=== PATIENT | female | born 1975 | race Caucasian/White ===

== ENCOUNTER 2022-08-31 09:47 | Outpatient (REF) | payer BC, SELFPAY ==
--- NOTE | 2022-08-31 09:20 | PAPFT_PTH ---
PATIENT: Chioma Carias LOC: [facility] U#:[id number] AGE/SX: 46/F ROOM: RE08/31/[address]: Katlyn Ardon MD : [id number] BED: DIS: 08/31/2022 SPEC #: [id number] RECD: 08/31/22 12:53 STATUS: SURESH REAnna #: [id number] HUMBERTO: 08/31/22 09:[address]: Katlyn Ardon DEPT: [facility] Cytology RECD BY: Dian Sainz ENTERED: 08/31/22 12:54 SP TYPE: PAPFT OTHR DR: Caitie Steele DO Tissues: 1 - CX/ENDOCX FOR PAP SMEARS Procedures: PAP THIN PREP/[facility] Screening HPV DNA PROBE Comments: [id number]
== END 2022-08-31 09:48 | disposition home or self-care (01) ==
LOC: LBN 09:47
PROVIDERS: PCP Obstetrics & Gynecology; Visit Provider Obstetrics & Gynecology
DX: Z12.4 Encounter for screening for malignant neoplasm of cervix (principal); Z11.51 Encounter for screening for human papillomavirus (HPV)
CPT/HCPCS: 88142; 87624

== ENCOUNTER 2022-09-14 00:38 | Outpatient (CLI) | payer BC, SELFPAY ==
--- NOTE | 2022-09-14 07:55 | DI.MAMMO_ITS ---
Exam(s) MAMMO SCREENING EXAM: MG MAMMO SCREENING CLINICAL HISTORY: screening TECHNIQUE: Mammograms were interpreted according to the usual protocol including computer analysis w [employer] CAD system, tomosynthesis and C-view imaging. COMPARISON: [facility] MAMMO VAN DIAGNOSTIC BILAT-M2 from 02/26/2021, [facility] FINDINGS: The breasts are composed of scattered fibroglandular densities, Breast Density category B. No suspicious masses or suspicious microcalcifications are seen. No skin thickening or abnormal axillary lymph nodes are seen. There has been no significant change from prior exams. IMPRESSION: BI-RADS Category 1, Negative mammogram Yearly screening mammography is recommended. Breast Density - Category B, scattered fibroglandular densities. A negative radiographic report should not delay biopsy if a dominant or clinically suspicious mass is present. Up to ten percent of cancers are not identified on mammography. A negative report may reinforce clinical impression. Adenosis and dense breasts may obscure an underlying neoplasm. False positive reports average 6 to 10%. Patient will receive a letter notifying them of these results.
== END 2022-09-14 00:58 ==
PROVIDERS: PCP Obstetrics & Gynecology; Visit Provider Obstetrics & Gynecology
DX: Z12.31 Encounter for screening mammogram for malignant neoplasm of breast (principal)
CPT/HCPCS: 77063; 77067

== ENCOUNTER 2023-02-15 13:18 | Outpatient (REF) | payer BC, SELFPAY | END 2023-02-15 13:19 | disposition home or self-care (01) | LOC: LBN 13:18 | PROVIDERS: PCP Obstetrics & Gynecology; Visit Provider Obstetrics & Gynecology | DX: R30.0 Dysuria (principal) | CPT/HCPCS: 87086 ==

== ENCOUNTER 2023-11-21 18:29 | Outpatient (REF) | payer BC, SELFPAY ==
--- OUTSIDE RECORDS SUMMARY | 2023-11-21 18:32 | XMS_ITS | Continuity of Care Document ---
Author Organization [facility] Address [address] [place] [address] Care Team Providers Care [place] Auditor Name Role Phone Alexander Reina Primary Care Physician [phone] Encounter [facility] Date(s): 11/13/23 - 11/13/[address] [address] Discharge Disposition: Home or Self Care Attending Physician: Alexander Reina MD Admitting Physician: Alexander Reina MD Referring Physician: Alexander Reina MD Allergies, Adverse Reactions, Alerts Substance Reaction Severity Status codeine Nausea Unknown Active Immunizations Given and Recorded Vaccine Date Status Refusal Reason SARS-CoV-2 (COVID-19) mRNA-1273 vaccine 09/19/20 R ecorded SARS-CoV-2 (COVID-19) mRNA-1273 vaccine 08/22/20 R ecorded influenza virus vaccine, inactivated 03/29/12 Keith rded influenza virus vaccine, inactivated 02/11/11 Keith rded influenza virus vaccine, inactivated 05/28/10 Keith rded tetanus/diphth/pertuss (Tdap) adult/adol 04/21/10 Recorded Medications HYDROcodone-acetaminophen 5 mg-325 mg oral tablet 1 tab, Oral, every 6 hr, PRN as needed for pain, # 12 tab, 0 Refill(s), Pharmacy: [facility] #[id number], 160, cm, 01/09/22 12:08:00 EDT, Height/Length Dosing, 65, kg, 01/09/22 12:08:00 EDT, Weight Dosing Start Date: 01/09/22 Status: Ordered Results Laboratory List Name Date Thyroid Stimulating Hormone 11/13/23 Most recent to oldest [Reference Range]: 1 TSH [0.358-3.740 mcIntlUnit/mL] 3.162 mc IntlUnit/mL (11/13/23 7:54 AM) Social History Social History Type Response Tobacco Never tobacco user T obacco Use:. Sex Female Patient Care team information Care Team Personnel Name: Alexander Reina MD Position: No Access Member Role: Informed Provider Address: Address: [address] [address] [place] Care Team Related Persons Name: AL MATHEW Address: Home [address] [facility] [phone]
--- OUTSIDE RECORDS SUMMARY | 2023-11-21 18:32 | XMS_ITS | Continuity of Care Document ---
Author Organization [facility] Address [address] [place] [address] Care Team Providers Care Cable Reeler Name Role Phone Alexander Reina Bhavna Primary Care Physician [phone] Encounter [facility] Date(s): 10/31/22 - 10/31/[address] [address] Discharge Disposition: Home or Self Care Attending Physician: Amira Mayes ND Admitting Physician: Amira Mayes ND Referring Physician: Amira Mayes ND Allergies, Adverse Reactions, Alerts Substance Reaction Severity Status codeine Nausea Unknown Active Assessment and Plan Diagnostic Tests Pending * Copper, S [place] 10/31/22 * Homocysteine, Total, P [place] 10/31/22 Immunizations Given and Recorded Vaccine Date Status [...] pain, # 12 tab, 0 Refill(s), Pharmacy: [facility] #[id number], 160, cm, 01/09/22 12:08:00 EDT, Height/Length Dosing, 65, kg, 01/09/22 12:08:00 EDT, Weight Dosing Start Date: 01/09/22 Status: Ordered Results Laboratory List Name Date Automated Diff 10/31/22 CBC w/ Diff 10/31/22 Comprehensive Metabolic Panel 10/31/22 Ferritin 10/31/22 Folate Level 10/31/22 Free T4 10/31/22 Hemoglobin A1c 10/31/22 Iron Level and TIBC 10/31/22 T3, Free [facility] 10/31/22 Thyroid Stimulating Hormone 10/31/22 Vitamin B12 Level 10/31/22 Most recent to oldest [Reference Range]: 1 WBC [5.0-10.0 x10^3/mcL] 4.7 x10^3/mcL *LOW* (10/31/22 8:03 AM) RBC [4.1-5.3 x10^6/mcL] 4.6 x10^6/mcL (10/31/22 8:03 AM) Neutro Auto [40.0-75.0 %] 57.9 % (10/31/22 8:03 AM) Lymph Auto [20.0-50.0 %] 29.4 % (10/31/22 8:03 AM) Sabine Auto [2.0-15.0 %] 7.0 % (10/31/22 8:03 AM) Basophil Auto [0.0-1.0 %] 0.6 % (10/31/22 8:03 AM) BUN [7-18 mg/dL] 16 mg/dL (10/31/22 8:03 AM) Glucose Level [74-106 mg/dL] 101 mg/dL (10/31/22 8:03 AM) Potassium Level [3.5-5.1 mmol/L] 4.0 mmo l/L (10/31/22 8:03 AM) MCV [80.0-96.0 fL] 91.0 fL (10/31/22 8:03 AM) T4 Free [0.76-1.46 ng/dL] 0.57 ng/dL *LOW* (10/31/22 8:03 AM) AST [15-37 unit/L] 16 unit/L (10/31/22 8:03 AM) ALT [14-59 unit/L] 34 unit/L (10/31/22 8:03 AM) MCHC [31.0-35.0 g/dL] 34.0 g/dL (10/31/22 8:03 AM) Sodium Level [136-145 mmol/L] 137 mmol/L (10/31/22 8:03 AM) Folate Level [8.6-58.9 ng/mL] 19.7 ng/mL (10/31/22 8:03 AM) Hct [37.0-47.0 %] 41.5 % (10/31/22 8:03 AM) Calcium Level [8.5-10.1 mg/dL] 8.2 mg/dL *LOW* (10/31/22 8:03 AM) Albumin Level [3.4-5.0 g/dL] 4.0 g/dL (10/31/22 8:03 AM) Protein Total [6.4-8.2 g/dL] 7.2 g/dL (10/31/22 8:03 AM) Iron Sat [20-55 %] 25 % (10/31/22 8:03 AM) MCH [26.0-32.0 pg] 30.9 pg (10/31/22 8:03 AM) Neutro Absolute 2.7 x10^3/mcL *NA* (10/31/22 8:03 AM) Bilirubin Total [0.2-1.0 mg/dL] 0.6 mg/d L (10/31/22 8:03 AM) Hgb [12.0-16.0 g/dL] 14.1 g/dL (10/31/22 8:03 AM) B12 Level [193-986 pg/mL] 1073 pg/mL *HI* (10/31/22 8:03 AM) Alk Phos [46-146 unit/L] 54 unit/L (10/31/22 8:03 AM) Ferritin Level [8-252 ng/mL] 95 ng/mL (10/31/22 8:03 AM) Platelets [130-450 x10^3/mcL] 251 x10^3/ mcL (10/31/22 8:03 AM) CO2 [21-32 mmol/L] 24 mmol/L (10/31/22 8:03 AM) TIBC [250-450 mcg/dL] 362 mcg/dL (10/31/22 8:03 AM) TSH [0.358-3.740 mcIntlUnit/mL] 10.075 m cIntlUnit/mL *HI* (10/31/22 8:03 AM) Iron [50-170 mcg/dL] 89 mcg/dL (10/31/22 8:03 AM) eGFR Non-AA [>=60] 102 (10/31/22 8:03 AM) eGFR AA [>=60] 102 (10/31/22 8:03 AM) Hemoglobin A1c [4.0-6.0 %] 5.3 % (10/31/22 8:03 AM) Chloride Level [98-107 mmol/L] 104 mmol/ L (10/31/22 8:03 AM) RDW-CV [11.5-14.5 %] 12.2 % (10/31/22 8:03 AM) Imm Gran Auto [0.0-0.9 %] 0.2 % (10/31/22 8:03 AM) Creatinine Level [0.55-1.02 mg/dL] 0.74 mg/dL (10/31/22 8:03 AM) T3, Free [facility] [2.8-5.3 pg/mL] 3.5 pg/mL 2 *NA* (10/31/22 8:03 AM) Eos, Auto [1.0-6.0 %] 4.9 % (10/31/22 8:03 AM) 2Result Comment: Test performed or referred by The [address] [id number] Social History Social History Type Response Tobacco Never tobacco user T obacco Use:. Sex Female Patient Care team information Care Team Personnel Name: Alexander Reina MD Position: No Access Member Role: Informed Provider Address: Address: [facility] [address] [place] [address] [place] Care Team Related Persons Name: AL MATHEW Address: Home [address] [place], [phone]
--- OUTSIDE RECORDS SUMMARY | 2023-11-21 18:32 | XMS_ITS | Continuity of Care Document ---
Author Organization [facility] Address [address] [place] [address] Care Team Providers Care Assessment Manager Name Role Phone Alexander Reina Primary Care Physician [phone] Encounter [facility] Date(s): 07/01/23 - 07/02/[address] [address] Discharge Disposition: Home or Self Care Attending Physician: Fidencio Poole MD Admitting Physician: Fidencio Poole MD Allergies, Adverse Reactions, Alerts Substance Reaction Severity Status codeine Nausea Unknown Active Assessment and Plan Extracted from: Title:Clinical Document Author:Jeannette Hamilton te:07/02/23 Diagnosis: Headache Comment: Immunizations Given and Recorded Vaccine Date Status [...] pain, # 12 tab, 0 Refill(s), Pharmacy: [id number], 160, cm, 01/09/22 12:08:00 EDT, Height/Length Dosing, 65, kg, 01/09/22 12:08:00 EDT, Weight Dosing Start Date: 01/09/22 Status: Ordered Mental Status 3/2/24 Eye Opening Response [place] Spontaneous ly Best Verbal Response Romina Oriented Best Motor Response Romina Obeys comman ds [place] Coma Score 15 Results Laboratory List Name Date Basic Metabolic Panel (BMP) 07/01/23 Beta hCG Quantitative 07/01/23 CBC w/ Diff 07/01/23 Automated Diff 07/01/23 Most recent to oldest [Reference Range]: 1 WBC [5.0-10.0 x10^3/mcL] 6.4 x10^3/mcL (07/01/23 10:42 PM) RBC [4.1-5.3 x10^6/mcL] 3.8 x10^6/mcL *LOW* (07/01/23 10:42 PM) Neutro Auto [40.0-75.0 %] 64.3 % (07/01/23 10:42 PM) Lymph Auto [20.0-50.0 %] 21.5 % (07/01/23 10:42 PM) [place] Auto [2.0-15.0 %] 10.1 % (07/01/23 10:42 PM) Basophil Auto [0.0-1.0 %] 0.3 % (07/01/23 10:42 PM) BUN [7-18 mg/dL] 19 mg/dL *HI* (07/01/23 10:42 PM) Glucose Level [74-106 mg/dL] 96 mg/dL (07/01/23 10:42 PM) Potassium Level [3.5-5.1 mmol/L] 3.8 mmo l/L (07/01/23 10:42 PM) MCV [80.0-96.0 fL] 91.9 fL (07/01/23 10:42 PM) MCHC [31.0-35.0 g/dL] 34.6 g/dL (07/01/23 10:42 PM) Sodium Level [136-145 mmol/L] 140 mmol/L (07/01/23 10:42 PM) Hct [37.0-47.0 %] 35.0 % *LOW* (07/01/23 10:42 PM) Calcium Level [8.5-10.1 mg/dL] 7.9 mg/dL *LOW* (07/01/23 10:42 PM) MCH [26.0-32.0 pg] 31.8 pg (07/01/23 10:42 PM) Neutro Absolute 4.1 x10^3/mcL *NA* (07/01/23 10:42 PM) Hgb [12.0-16.0 g/dL] 12.1 g/dL (07/01/23 10:42 PM) Platelets [130-450 x10^3/mcL] 202 x10^3/ mcL (07/01/23 10:42 PM) CO2 [21-32 mmol/L] 24 mmol/L (07/01/23 10:42 PM) eGFR Non-AA [>=60] 105 (07/01/23 10:42 PM) eGFR AA [>=60] 105 (07/01/23 10:42 PM) Chloride Level [98-107 mmol/L] 107 mmol/ L (07/01/23 10:42 PM) RDW-CV [11.5-14.5 %] 12.3 % (07/01/23 10:42 PM) Imm Gran Auto [0.0-0.9 %] 0.2 % (07/01/23 10:42 PM) Creatinine Level [0.55-1.02 mg/dL] 0.72 mg/dL (07/01/23 10:42 PM) Eos, Auto [1.0-6.0 %] 3.6 % (07/01/23 10:42 PM) Beta hCG Qnt [1-6 mIntlUnit/mL] <1 mIntl Unit/mL *LOW* (07/01/23 10:42 PM) Vital Signs Most recent to oldest [Reference Range]: 1 Temperature Temporal Artery [36-38 Deg C ] 37.5 Deg C (07/01/23 10:11 PM) Heart Rate Monitored [60-100 bpm] 87 bpm (07/01/23 10:11 PM) Respiratory Rate [12-24 br/min] 18 br/mi n (07/01/23 10:11 PM) Blood Pressure [90-140/60-90 mmHg] 129/7 2mmHg (07/01/23 10:11 PM) Mean Arterial Pressure, Cuff [65-140 mmH g] 91 mmHg (07/01/23 10:11 PM) Social History Social History Type Response Tobacco Never tobacco user T obacco Use:. Sex Female Physician Emergency department Note * Fidencio Poole MD: PERFORM Event Display: ED Note Physician Authored Date: [id number] JOSE ANTONIO MATHEW :1975 Age:47 years Sex:Female Visit Date:07/01/2023 Primary Care Physician: Alexander Reina MD HPI 47-year-old female with a history of infrequent prior headaches presents for evaluation of a headache that has been persistent for approximately 6 days and generally refractory to OTC medications (NyQuil, ibuprofen). Patient notes that she had relatively rapid onset of her headache 6 days ago. Patient has taken NyQuil and ibuprofen shortly prior to arrival. * Denies changes in vision or hearing, fevers, neck stiffness, rashes, neck pain, temporal pain, jaw pain with chewing, dental pain, minor neck trauma, recent chiropractic manipulation, or head trauma. Patient notes chiropractic manipulation of her neck several months ago. * Denies anticoagulation or hypercoaguable history. Patient has a sister with a history of factor Vand factor IX deficiency who has a history of [employer] thrombosis, patient without any known hypercoagulable history.?? * No family members with similar symptoms. CO detectors in house. Unable to identify any higher risk exposures to possible carbon monoxide. ?? M/S/F/SocHx notable for: please see HPI; remainder reviewed with patient and in chart.? ROS: Negative constitutional, eye, cardiovascular, pulmonary, GI, , MSK, skin, neurologic, psychiatric, endocrine unless noted in the HPI. ?? Exam HR 87, BP 129/72, RR 18, T 37.5??C, SaO2??96% on room air. Gen: Pleasant, non-toxic appearing, resting in mild discomfort. HEENT: NC, AT. Dentition intact without visible caries. No frontal or maxillary sinus TTP. Temples without TTP bilaterally, equal 2+ temporal artery pulses. No paraspinal posterior neck pain. Resp: clear to auscultation bilaterally. Card: RRR GI: NT/ND : Deferred MSK: No visible deformities, strength and tone WNL. Skin: Normal color with no visible lesions.?? Neuro:??alert and oriented?3, no facial asymmetry, no gaze preference, no slurring of speech. CN II-III: pupils equal and reactive (4->2mm bilaterally); III, IV, : EOMI, V1-V3: sensation totouch bilaterally intact; VII: no facial asymmetry (frown / smile); VIII: no nystagmus; X: phonation intact, uvula midline; XI: trapezius 5/5 bilaterally, XII: tongue midline. Psych: Mildly anxious mood and affect, somewhat hyperbolic in providing history, otherwise appropriate. ?? Labs WBC 6.4, Hb 12.1, Na 140, K 3.8, beta-hCG <1. ?? Imaging CTA head:??No intracranial large vessel high-grade stenosis or occlusion.? CTA??neck: Patent vertebral and carotid arteries. No stenosis of the internal carotid arteries bilaterally by NASCET criteria. ?? MDM Previous chart, nursing note, and vitals reviewed.?? A:??47-year-old female with a history of infrequent prior headaches presents for evaluation of a headache that has been persistent for approximately 6 days and generally refractory to OTC medications(NyQuil, ibuprofen). ?? DDx: migraine / tension headache, cluster headache, sentinel bleed/SAH, infection (LI[employer] vs [place] secondary to non-LIQU[employer] OPERATOR focal infection), tumor/mass effect, hypertensive encephalopathy, glaucoma or iritis,idiopathic intracranial hypertension, cavernous sinus thrombosis, temporal arteritis. ?? Evaluation:?*??Migraine??/ tension headache -tentatively suspect a migraine type headache as the patient has a history of headaches and the remainder of the patient's differential has been relatively excluded. ??* Cluster - doubt cluster headache given the absence of unilateral symptoms, eye watering, swelling, or nasal congestion. ??* [place] bleed/SAH - no evidence of aneurysm or intracranial hemorrhage by imaging. Patient without meningismus, consider sentinel bleed/SAH to be effectively ruled out/appropriately risk stratified. ??* Infection - Given lack of rash, meningismus, or fever; doubt meningitis. Similarly the history and exam are without evidence of acute otitis media, sinusitis, dental abscesses or clinically significant dental caries. ??* Mass - no evidence by imaging. * Hypertensive encephalopathy - BP within the brain's autoregulatory zone. * Glaucoma or iritis - As the patient is without reported vision changes, eye pain, and an occular exam without increases in pain on pupillary constriction further evaluation was not pursued. * Idiopathic Intracranial Hypertension - unlikely given the lack of visual symptoms, short durationof symptoms, lack of worsening with valsalva, or more prominent morning symptoms. * Thrombosis - given the lack of identifiable risk factors (preceding facial infection, fever, and hypercoagulability) as well as an absence of deficits on exam doubt both cavernous and venous sinus thrombosis. Additionally, no concerning features noted on imaging. While the patient's sister has a history of hypercoagulability, the patient has no known hypercoagulable history nor identifiable risk factors with respect to today's presentation. Given the patient's improvement with symptomatic treatment as below, further emergent evaluation is not felt to be indicated. * Temporal Arteritis - given lack of temporally localized headache, temporal tenderness or decreased temporal artery pulse, absent history of jaw claudication or vision changes; doubt. ?? ED Course:?1 L NS, 2 mg haloperidol, 12.5 mg diphenhydramine, 10 mg dexamethasone, and 1 g magnesium??given for symptomatic treatment.?12:37 AM??-??patient with significant improvement of headache. Resting comfortably. ?? Disposition: Patient discharged with PCP follow-up recommended. ?? Impression: Headache. Electronically Signed on 07/02/23 01:03 AM Fidencio Poole MD Emergency department Discharge instructions * Fidencio Poole MD: PERFORM Event Display: ED Discharge Information Authored Date: [id number] JOSE ANTONIO MATHEW :1975 Age:47 years Sex:Female Visit Date:07/01/2023 Primary Care Physician: Alexander Reina MD Discharge Instructions We would like to thank you for allowing us to assist you with your healthcare needs. The following includes patient education materials and information regarding your injury/illness. ?? You were seen at [facility] for evaluation for evaluation of??a headache.??Please read and follow all of the instructions below. ?? Please follow up with your primary care physician??in the next 7-10 days for repeat evaluation of your headaches. When calling for follow-up care, please make the office aware that this follow-up is from your recent emergency room visit.? Your care today was limited to identifying and treating emergent medical problems only. Many peoplehave subtle differences in their test results that require follow up with their outpatient physician(s) to correctly determine if this represents a normal variation or concerning abnormality with respect to your specific health.??The care given to you today was limited to identifying and treating emergent medical problems - you need to request a copy of all of your medical records from today's visit and follow up with your outpatient physician(s) to review both today's visit and your overall health. If you have any new symptoms or if you are at all concerned about your health please return immediately to the emergency department. ?? Prescriptions: If you are uninsured or have financial difficulties with filling your prescription(s), you may consider using a free pharmacy discount service such as [employer] ([place]) or [employer] ([place]). These services allow you to search for a medication on your phone (or computer) and obtain a coupon that usually has a significant discount from the list wheat at a pharmacy. Your physician does not have a financial relationship with either of these services. You may also wish to speak with your physician to determine if lower cost prescriptions are possible. ?? Headache You were seen in the emergency department for evaluation and treatment of a headache. There are many causes for headaches. Most are painful but do not threaten your health. However there are some types of headaches that can be life threatening. Please return to the emergency department if you develop any of the following: * Your headache worsens, becomes severe, or you have nausea or vomiting. * Fever greater than 100.5 degrees Fahrenheit. * You have neck stiffness. * Changes in vision or hearing. * You have new weakness, numbness, or decreased sensation. * You have dizziness or difficulty walking * You feel faint or like you will pass out. ?? Please follow up with your primary care doctor if your symptoms continue or do not improve. ?? If you have recurrent headaches, your primary care physician may be able to prescribe medications that abort headaches or refer you to a neurologist for further evaluation and work up of your headaches.? Home care instructions:?? * Keep all follow-up appointments with your caregiver or any specialist referral.?? * Lie down in a dark, quiet room when you have a headache.? Keep a headache journal to find out what may trigger your migraine headaches. For example, write down:?? * What you eat and drink.?? * How much sleep you get.?? * Any change to your diet or medicines.?? * Try massage or other relaxation techniques.?? * Put ice packs or heat on the head and neck. Use these 3 to 4 times per day for 15 to 20 minutes each time, or as needed.?? * Limit stress.?? * Sit up straight, and do not tense your muscles.?? * Quit smoking if you smoke.?? * Limit alcohol use.?? * Decrease the amount of caffeine you drink, or stop drinking caffeine.?? * Eat and sleep on a regular schedule.?? * Get 7 to 9 hours of sleep, or as recommended by your caregiver.?? * Keep lights dim if bright lights bother you and make your headaches worse.? You make take over the counter Acetaminophen (Tylenol) and Ibuprofen (Motrin or Aleve) as directed below for relief of pain.?? *??Take 600 mg of ibuprofen (three 200 mg tablets) with a glass of water every 6-8 hours as needed for pain or fever. Do not take if , allergic to ibuprofen, or if you have severe kidney disease. * Take 1,000 mg of acetaminophen (two 500 mg tablets) with a glass of water every 6-8 hours as needed for pain. Do not take up allergic to acetaminophen. If you have liver disease do not take more than 2000 mg in 24 hours. * You can take these medications at the same time or on separate schedules.?? * Do not take for more than 10 days. * Do not take with alcohol or other acetaminophen containing medications.?? * This medication may cause a mildly upset stomach, if so take it with a small snack. Stop taking it if you have persistent abdominal pain, heartburn, or any stomach pain. Do not take this medicationif you have known ulcers.?? * Please read the warnings at the end of this document regarding these medications.? IBUPROFEN WARNING: This drug may infrequently cause serious (rarely fatal) bleeding from the stomach or intestines. Also, related drugs rarely have caused blood clots to form, resulting in heart attacks and strokes. This medication might also rarely cause similar problems. Talk to your doctor or pharmacist about the benefits and risks of treatment, as well as other possible medication choices. Ifyou notice any of the following rare but very serious side effects, stop taking ibuprofen and seek immediate medical attention: black stools, persistent stomach/abdominal pain, vomit that looks like coffee grounds, chest pain, weakness on one side of the body, sudden vision changes, slurred speech.? IBUPROFEN SIDE EFFECTS: Upset stomach, nausea, vomiting, heartburn, headache, diarrhea, constipation, drowsiness, and dizziness may occur. If any of these effects persist or worsen, notify your doctor or pharmacist promptly. If your doctor has directed you to use this medication, remember that he or she has judged that the benefit to you is greater than the risk of side effects. Many people usingthis medication do not have serious side effects. Tell your doctor immediately if any of these serious side effects occur: stomach pain, swelling of the hands or feet, sudden or unexplained weight gain, ringing in the ears (tinnitus). Tell your doctor immediately if any of these unlikely but serious side effects occur: vision changes, rapid or pounding heartbeat, easy bruising or bleeding, difficult/painful swallowing. Tell your doctor immediately if any of these highly unlikely but very serious side effects occur: change in amount of urine, severe headache, very stiff neck, mental/mood changes, persistent sore throat or fever. This drug may rarely cause serious (possibly fatal) liver disease. If you notice any of the following highly unlikely but very serious side effects, stop taking ibuprofen and consult your doctor or pharmacist immediately: yellowing eyes and skin, dark urine, unusual/extreme tiredness. An allergic reaction to this drug is unlikely, but seek immediate medical attention if it occurs. Symptoms of an allergic reaction include: rash, itching/swelling (especially ofthe face/tongue/throat), severe dizziness, trouble breathing. This is not a complete list of possible side effects.? ACETAMINOPHEN SIDE EFFECTS: This drug usually has no side effects. If you do not have liver problems, the maximum dose of acetaminophen for adults is 4 grams per day (4000 milligrams). Taking more than the maximum daily amount may cause serious (possibly fatal) liver damage. Get medical help right away if you have any of the following symptoms of liver damage: persistent nausea/vomiting, extreme tiredness, stomach/abdominal pain, yellowing eyes/skin, dark urine. If you have liver problems, consult your doctor or pharmacist for a safe dosage of this medication. A very serious allergic reactionto this drug is rare. However, get medical help right away if you notice any symptoms of a serious allergic reaction, including: rash, itching/swelling (especially of the face/tongue/throat), severe dizziness, trouble breathing. This is not a complete list of possible side effects. If you notice other effects not listed above, contact your doctor or pharmacist. ?? DRUG INTERACTIONS: Your healthcare professionals (e.g., doctor or pharmacist) may already be aware of any possible drug interactions and may be monitoring you for it. Do not start, stop or change thedosage of any medicine before checking with them first. This drug should not be used with the following medications because very serious interactions may occur: cidofovir, ketorolac. If you are currently using any of these medications listed above, tell your doctor or pharmacist before starting ibuprofen. Before using this medication, tell your doctor or pharmacist of all prescription and nonprescription/herbal products you may use, especially of: anti-platelet drugs (e.g., cilostazol, clopidogrel), oral bisphosphonates (e.g., alendronate), other medications for arthritis (e.g., aspirin, methotrexate), blood thinners (e.g., enoxaparin, heparin, warfarin), corticosteroids (e.g., prednisone), cyclosporine, desmopressin, high blood pressure drugs (including CELE inhibitors such as captopril, angiotensin II receptor antagonists such as losartan, and beta-blockers such as metoprolol), lithium, pemetrexed, water pills (diuretics such as furosemide, hydrochlorothiazide, triamterene). Check all prescription and nonprescription medicine labels carefully for other pain/fever drugs (NSAIDs such as aspirin, celecoxib, naproxen). These drugs are similar to ibuprofen, so taking one of these drugs while also taking ibuprofen may increase your risk of side effects. Consult your doctor or pharmacist for more details. However, if your doctor has prescribed low doses of aspirin to prevent heart attack or stroke (usually at dosages of 81-325 milligrams a day), you should continue to take theaspirin. Daily use of ibuprofen may decrease aspirin's ability to prevent heart attack/stroke. Talkto your doctor about using a different medication (e.g., acetaminophen) to treat pain/fever. If youmust take ibuprofen, talk to your doctor about possibly taking immediate-release aspirin (not enteric-coated) while also taking the ibuprofen dose apart from your aspirin dose. Do not increase your daily dose of aspirin or change the way you take aspirin/other medications without your doctor's approval. This document does not contain all possible interactions. Therefore, before using this product, tell your doctor or pharmacist of all the products you use. Keep a list of all your medications with you, and share the list with your doctor and pharmacist. ?? Discharge Vitals Temperature??(Temporal Artery) 99.5 ??F (37.5 ??C) Heart Rate??(Monitored) 87 Respiratory Rate?? 18 Blood Pressure?? 129/72?? SpO2?? 96% Allergies codeine??(Nausea) You were treated today on an emergency basis; it may be swift to contact your primary care provider to notify them of your visit today. You may have been referred to your regular doctor or a specialist, please follow up as instructed. If your condition worsens or you can't get in to see the doctor, contact the Emergency Department. Medications What How Much When Instructions Next Dose Unchanged HYDROcodone-acetaminophen (HYDROcodone-acetaminophen 5 mg-325 mg oral tablet) 1 tab Oral (given by mouth) Every 6 hours as needed for as needed for pain Tests Performed Medications and Immunizations Administered Given dexamethasone, 10 mg, IV Push diphenhydrAMINE 50 mg/mL injectable solution, 12.5 mg, IV Push haloperidol 5 mg/mL injectable solution, 2 mg, Slow IV Push magnesium sulfate, 1 g, IV Piggyback Lab Test Name Test Result Date/Time WBC 6.4 x10^3/mcL 07/01/2023 22:42 EST RBC 3.8 x10^6/mcL 07/01/2023 22:42 EST Hgb 12.1 g/dL 07/01/2023 22:42 EST Hct 35.0 % 07/01/2023 22:42 EST MCV 91.9 fL 07/01/2023 22:42 EST MCH 31.8 pg 07/01/2023 22:42 EST MCHC 34.6 g/dL 07/01/2023 22:42 EST RDW-CV 12.3 % 07/01/2023 22:42 EST Platelets 202 x10^3/mcL 07/01/2023 22:42 EST Neutro Auto 64.3 % 07/01/2023 22:42 EST Lymph Auto 21.5 % 07/01/2023 22:42 EST [place] Auto 10.1 % 07/01/2023 22:42 EST Eos, Auto 3.6 % 07/01/2023 22:42 EST Basophil Auto 0.3 % 07/01/2023 22:42 EST Imm Gran Auto 0.2 % 07/01/2023 22:42 EST Neutro Absolute 4.1 x10^3/mcL 07/01/2023 22:42 EST Sodium Level 140 mmol/L 07/01/2023 22:42 EST Potassium Level 3.8 mmol/L 07/01/2023 22:42 EST Chloride Level 107 mmol/L 07/01/2023 22:42 EST CO2 24 mmol/L 07/01/2023 22:42 EST BUN 19 mg/dL 07/01/2023 22:42 EST Glucose Level 96 mg/dL 07/01/2023 22:42 EST Creatinine Level 0.72 mg/dL 07/01/2023 22:42 EST eGFR AA 105 07/01/2023 22:42 EST eGFR Non-AA 105 07/01/2023 22:42 EST Calcium Level 7.9 mg/dL 07/01/2023 22:42 EST Beta hCG Qnt <1 mIntlUnit/mL 07/01/2023 22:42 EST Patient/Technical Writer Signature Patient Name:JOSE ANTONIO MATHEW I have received this information and my questions have been answered. Patient/Technical Writer Name: Patient/Technical Writer Signature: Relationship to Patient: Witness Name/Signature: Date: Electronically Signed on: 07/02/2023 01:03 ESTSigned by:FUAD Discharge summary * Jeannette Hamilton: PERFORM Event Display: Discharge Note Authored Date: * Jeannette Hamilton: PERFORM Event Display: Discharge Note Authored Date: Diagnosis: Headache Comment: Electronically Signed on 07/02/23 06:19 AM Jeannette Hamilton Patient Care team information Care Team Personnel Name: Alexander Reina MD Position: No Access Member Role: Informed Provider Address: Address: [address] [address] [place] Care Team Related Persons Name: AL MATHEW Address: [address] [id number]
--- OUTSIDE RECORDS SUMMARY | 2023-11-21 18:33 | XMS_ITS ---
Author Organization Unknown Address [address] [place] [phone] Phone Care Team Providers Care Black Belt Name Role Phone BETO Geiger Attending Unavailable Results XR FINGER(S) RT 3V* - Comple john: 05/19/2021 14:14 LOINC: RIGHT THUMB, 4 VIEWS: There is no evidence of fracture nor widening at the metacarpophalangeal joint. Articulation between the thumb and the carpal and the trapezium appears normal. There is a 1 mm calcific density seen adjacent to the lateral aspect of the interphalangeal joint of the thumb. No degenerative change is evident at this level. No erosions. Other visualized metacarpals appear intact. Dictated by: DIEGO OLGUIN MD Transcribed by: ANTIONETTE 05/19/21/15:58 [id number] Electronically Reviewed and Signed By: GREG OLGUIN MD 05/19/21 16:58 Copy for: 185 HEALTH INFORMATION MGMT Social History Type Status Start Date End Date Code Code Syst em Smoking History Current every day smoker 782844648 SNOMED CT Sex Female Hospital Discharge Instructions Should you have any questions prior to discharge, please contact a member of your healthcare team. If you have left the hospital and have any questions, please contact your primary care physician. Reason For Referral No Data Found Allergies and Adverse Reactions Allergy Substance Reaction Severity Start Date Concern Status Co de Code System No Known Drug Allergies Active 707220538 SNOMED-CT Plan of Treatment US PELVIC / TV 07/05/2023 PRE-OP COVID-19 TESTING 10/01/2021 NM HEPATOBILIARY CCK 09/15/2021 Encounters Encounter Diagnosis Start Date Code Code Sys tem 05/19/2021 [id number] SNOMED-CT Personal Care Team Section Performer Name Performer Role Active Date Inactive Da te
--- OUTSIDE RECORDS SUMMARY | 2023-11-21 18:33 | XMS_ITS | Continuity of Care Document ---
Author Organization [facility] Address [address] [place] [address] Care Team Providers Care Groover And Turner Name Role Phone NunoAlexander Primary Care Physician [phone] Encounter [facility] Date(s): 11/04/22 - 11/04/22 [facility] [address] [place] [address] Discharge Disposition: Home or Self Care Attending [...] pain, # 12 tab, 0 Refill(s), Pharmacy: [facility], 160, cm, 01/09/22 12:08:00 EDT, Height/Length Dosing, 65, kg, 01/09/22 12:08:00 EDT, Weight Dosing Start Date: 01/09/22 Status: Ordered Social History Social History Type Response Tobacco Never tobacco user T obacco Use:. Sex Female Patient Care team information Care Team Personnel Name: Alexander Reina MD Position: No Access Member Role: Informed Provider Address: Address: [facility] [address] [place] [address] [place] Care Team Related Persons Name: AL MATHEW Address: [address] [phone]
--- OUTSIDE RECORDS SUMMARY | 2023-11-21 18:33 | XMS_ITS ---
Author Organization Unknown Address [address] [place] [phone] Phone Care Team Providers Care Drawer Fitter Name Role Phone CARMEN Vo Attending Unavailable NICA Vo Primary Unavailable Social History Type Status Start Date End Date Code Code Syst em Smoking History Current every day smoker 075685432 SNOMED CT Sex Female Hospital Discharge Instructions Should you have any questions prior to discharge, please contact a member of your healthcare team. If you have left the hospital and have any questions, please contact your primary care physician. Reason For Referral No Data Found Procedures Procedure Name Date Status Code Code Syste m NEUROPLASTY &/TRANSPOS MEDIA N NRV CARPAL TUNNE 06/04/2021 completed [id number] SNOMEDCT Allergies and Adverse Reactions Allergy Substance Reaction Severity Start Date Concern Status Co de Code System No Known Drug Allergies Active 246512721 SNOMED-CT Plan of Treatment US PELVIC / TV 07/05/2023 PRE-OP COVID-19 TESTING 10/01/2021 NM HEPATOBILIARY CCK 09/15/2021 Encounters Encounter Diagnosis Start Date Code Code Sys tem 06/04/2021 [id number] SNOMED-CT Personal Care Team Section Performer Name Performer Role Active Date Inactive Da eli
--- OUTSIDE RECORDS SUMMARY | 2023-11-21 18:33 | XMS_ITS ---
Author Organization Unknown Address [address] [place] [phone] Phone Care Team Providers Care Director Sales Name Role Phone CARMEN Vo Attending Unavailable BETO Geiger Physician Classifier Unavailable YOUSIFROGER SINCLAIR S Primary Unavailable Social History Type Status Start Date End Date Code Code Syst em Smoking History Current every day smoker 001267436 SNOMED CT Sex Female Hospital Discharge Instructions Should you have any questions prior to discharge, please contact a member of your healthcare team. If you have left the hospital and have any questions, please contact your primary care physician. Reason For Referral No Data Found Procedures Procedure Name Date Status Code Code Syste m Neuroplasty &/Or Transpositi on; Median Nerve At Carpal Tunnel 06/04/2021 completed 40994 CPT Allergies and Adverse Reactions Allergy Substance Reaction Severity Start Date Concern Status Co de Code System No Known Drug Allergies Active 896869278 SNOMED-CT Plan of Treatment US PELVIC / TV 07/05/2023 PRE-OP COVID-19 TESTING 10/01/2021 NM HEPATOBILIARY CCK 09/15/2021 Encounters Encounter Diagnosis Start Date Code Code Sys tem Carpal tunnel syndrome, bilateral upper limbs 06/04/19 22 SNOMED-CT Personal Care Team Section Performer Name Performer Role Active Date Inactive Da te
--- OUTSIDE RECORDS SUMMARY | 2023-11-21 18:34 | XMS_ITS ---
Author Organization Unknown Address [address] [place] [phone] Phone Care Team Providers Care Client Manager Name Role Phone MISA Martínez Attending Unavailable NICA Vo Primary Unavailable Social History Type Status Start Date End Date Code Code Syst em Smoking History Current every day smoker 455015210 SNOMED CT Sex Female Hospital Discharge Instructions [...] Code System No Known Drug Allergies Active 457768400 SNOMED-CT Plan of Treatment US PELVIC / TV 07/05/2023 PRE-OP COVID-19 TESTING 10/01/2021 NM HEPATOBILIARY CCK 09/15/2021 Encounters Encounter Diagnosis Start Date Code Code Sys tem Removal of suture 06/14/2021 52957161 SNOMED-CT Personal Care Team Section Performer Name Performer Role Active Date Inactive Da te
--- OUTSIDE RECORDS SUMMARY | 2023-11-21 18:34 | XMS_ITS ---
Author Organization Unknown Address [address] [place] [phone] Phone Care Team Providers Care Cook Box Filler Name Role Phone IVIS Choe Attending Unavailable WARREN Huggins Primary Unavailable Social History Type Status Start Date End Date Code Code Syst em Smoking History Current every day smoker 414147918 SNOMED CT Sex Female Vital Signs Vital Sign Value Unit Boaz Value Boaz Unit Date/Time Recent/Initial? Code Code System Systolic Blood Pressure 98 mm[Hg] 10/04/2021 16:14 Most Recent 8480-6 LOINC Diastolic Blood Pressure 61 mm[Hg] 10/04/2021 16:14 Most Recent 8462-4 LOINC Systolic Blood Pressure 101 mm[Hg] 10/04/2021 16:13 Initial 8480-6 LOINC Diastolic Blood Pressure 59 mm[Hg] 10/04/2021 16:13 Initial 8462-4 LOINC O2 Saturation 99 % 2021 16:14 Most Recent 00906- 5 LOINC O2 Saturation 99 % 2021 16:13 Initial 34226- 5 LOINC Pulse 66.0 /min 10/04/2021 16:14 Most Recent 8867-4 LOINC Pulse 68.0 /min 10/04/2021 16:13 Initial 8867-4 LOINC Respiration 14 /min 10/05/19 22 16:14 Most Recent 9279-1 LOINC Respiration 16 /min 10/05/19 16:13 Initial 9279-1 LOINC Hospital Discharge Instructions Should you have any questions prior to discharge, please contact a member of your healthcare team. If you have left the hospital and have any questions, please contact your primary care physician. Reason For Referral No Data Found Procedures Procedure Name Date Status Code Code Syste m Colonoscopy, Flexible, Proxi mal To Splenic Flexure; w/Bx, Single/Multiple 10/04/2021 completed 74861 C PT Allergies and Adverse Reactions Allergy Substance Reaction Severity Start Date Concern Status Co de Code System No Known Drug Allergies Active 715758550 SNOMED-CT Plan of Treatment US PELVIC / TV 07/05/2023 PRE-OP COVID-19 TESTING 10/01/2021 NM HEPATOBILIARY CCK 09/15/2021 Encounters Encounter Diagnosis Start Date Code Code Sys tem Right upper quadrant pain 10/04/2021 SN OMED-CT Personal Care Team Section Performer Name Performer Role Active Date Inactive Da te
--- OUTSIDE RECORDS SUMMARY | 2023-11-21 18:34 | XMS_ITS ---
Author Organization Unknown Address [address] [place] [phone] Phone Care Team Providers Care Water Softener Servicer Name Role Phone WARREN Huggins Attending Unavailable NICA Vo Primary Unavailable Results NM HIDA W CCK* - Completed: 09/15/2021 15:08 LOINC: CCK HIDA SCAN: The patient received 4.7 mCi of Tc99m Mebrofenin, followed by 1.8 mcg of CCK infusion. The patient did experience minor cramping during the infusion process. The liver, gallbladder, bile ducts and small bowel were visualized at the appropriate time intervals. Gallbladder ejection fraction was calculated at 72% which is within normal limits (normal greater than 35%). IMPRESSION:Unremarkable CCK HIDA scan. Dictated by: JACKIE ROLAND MD Transcribed by: YARELY 09/16/21/16:01 D Wednesday, September 15, 2021 3:05:10 PM [id number] Electronically Reviewed and Signed By: DOTTIE ROLAND MD 09/18/21 16:56 Copy for: WARREN Huggins via modem Copy for: NICA Vo via fax Copy for: 185 HEALTH INFORMATION MGMT Social History Type Status Start Date End Date Code Code Syst em Smoking History Current every day smoker 318250517 SNOMED CT Sex Female Hospital Discharge Instructions [...] Code System No Known Drug Allergies Active 502057740 SNOMED-CT Plan of Treatment US PELVIC / TV 07/05/2023 PRE-OP COVID-19 TESTING 10/01/2021 NM HEPATOBILIARY CCK 09/15/2021 Encounters Encounter Diagnosis Start Date Code Code Sys tem Right upper quadrant pain 09/15/2021 SN OMED-CT Personal Care Team Section Performer Name Performer Role Active Date Inactive Da te
--- OUTSIDE RECORDS SUMMARY | 2023-11-21 18:34 | XMS_ITS ---
Author Organization Unknown Address [address] [place] [phone] Phone Care Team Providers Care Fingerprint Clerk Name Role Phone CARMEN Vo Attending Unavailable NICA Vo Primary Unavailable [facility] - [place] ect Date/Time: 06/02/2021 10:07 ID: [id number] [address] [place] [address], [id number] LOINC: 21040-9 Test Value Unit Reference Range Code Code System Flag Tier- PRE-OP 57379-2 LOINC SARS COV2 RNA: NEGATIVE REFERENCE RANGE: NEGAT 92935-0 L OINC Social History Type Status Start Date End Date Code Code Syst em Smoking History Current every day smoker 903552477 SNOMED CT Sex Female Hospital Discharge Instructions [...] Code System No Known Drug Allergies Active 704725413 SNOMED-CT Plan of Treatment US PELVIC / TV 07/05/2023 PRE-OP COVID-19 TESTING 10/01/2021 NM HEPATOBILIARY CCK 09/15/2021 Encounters Encounter Diagnosis Start Date Code Code Sys tem Pre-surgery testing 06/02/2021 217585371 SNOMED-C T Personal Care Team Section Performer Name Performer Role Active Date Inactive Da te
--- OUTSIDE RECORDS SUMMARY | 2023-11-21 18:35 | XMS_ITS | Encounter Summary ---
Author Organization [facility] Address [address] [place] [address] Care Team Providers Care Windows Application Packager Name Role Phone Unknown, Provider Primary Care Provider [phone] Encounter Details Date Type Department Care Team (Late st Contact Info) Description 11/13/2006 Results Only [facility] - Maple conversion [address] [place] [address] [place] [address] Social History Tobacco Use Types Packs/Day Years Used Date Smoking Tobacco: Never Assessed Sex and Gender Information Value Date Recorded Sex Assigned at Not on file Gender Identity Not on file Sexual Orientation Not on file documented as of this encounter Plan of Treatment Not on file documented as of this encounter Procedures Procedure Name Priority Date/Time Associated Diagnosis Comments CYTOPATHOLOGY Routine 11/13/2006 0:00 EDT documented in this encounter Results * CYTOPATHOLOGY (11/13/2006 0:00 EDT) Pathology Report: CYTOPATHOLOGY REPORT Reports generated via electronic interface contain original data; however they are lacking the format of the original report. Caution should be taken when reading/interpreti ng unformatted reports. Name: ? JOSE ANTONIO CARIAS ? Accession #: ? [id number] : ? 1975 (Age: 31) ??F ?Collect Date: ? 11/13/2006 Location: ? [facility] ? Receive Date: ? 11/14/2006 Provider: ?MIRNA OCAMPO CNM Copy to: ? Specimen/Source: ?ThinPrep Pap Test, Cervix/Endocervix, processed on NuPotential ThinPrep Imaging System, with manual evaluation Last Menstrual Period: ? 12/07/05 Menstrual/Pregnanc y Status: ? Post Previous Gynecologic Pathology: ? ASC-US: cannot r/o TORRIE Treatment History: ? Colposcopy: normal ? SPECIMEN ADEQUACY ? Satisfactory for Evaluation - transformation zone component present GENERAL CATEGORIZATION ? Negative for Intraepithelial Lesion or Malignancy ? Document reviewed and electronically signed by: ? Anjelica Lange, JOANNE(ASCP)(IAC) ? Report Date: ??11/20/2006 11:36 End of Report JONATHON GIL 11/13/2006 11/14/2006 Mirna Ocampo ADRIÁN PATHOLOGY ORDERABLES [facility] [address] [place] [address] documented in this encounter Visit Diagnoses Not on filedocumented in this encounter Care Teams Windows Application Packager Relationship Specialty Start Date End Date Unknown, Provider, PCP - General 10/02/08 documented as of this encounter
--- OUTSIDE RECORDS SUMMARY | 2023-11-21 18:35 | XMS_ITS | Encounter Summary ---
Author Organization [facility] Address [address] [place] [address] Care Team Providers Care Industrial Nurse Name Role Phone Unknown, Provider Primary Care Provider Encounter Details Date Type Department Care Team (Late st Contact Info) Description 12/25/2001 Results Only [facility] - Maple conversion [address] [place] [address] Rohan Thorpe MD Social History Tobacco Use Types Packs/Day Years Used Date Smoking Tobacco: Never Assessed Sex and Gender Information Value Date Recorded Sex Assigned at Not on file Gender Identity Not on file Sexual Orientation Not on file documented as of this encounter Plan of Treatment Not on file documented as of this encounter Procedures Procedure Name Priority Date/Time Associated Diagnosis Comments CYTOPATHOLOGY Routine 12/25/2001 0:00 EDT documented in this encounter Results * CYTOPATHOLOGY (12/25/2001 0:00 EDT) Pathology Report: CYTOPATHOLOGY REPORT Reports generated via electronic interface contain original data; however they are lacking the format of the original report. Caution should be taken when reading/interpreti ng unformatted reports. Name: ? JOSE ANTONIO CARIAS ? Accession #: ? [id number] : ? 1975 (Age: 26) ??F ?Collect Date: ? 12/25/2001 Location: ? [facility] ? Receive Date: ? 12/27/2001 Provider: ?ROHAN THORPE MD Copy to: ? Specimen/Source: ?ThinPrep Pap Test, Cervix/Endocervix Last Menstrual Period: ? 12/15/01 Other: ? HPVA - HPV testing requested if ASC-US on the current ThinPrep Pap test. ? SPECIMEN ADEQUACY ? Satisfactory for Evaluation - transformation zone component present GENERAL CATEGORIZATION ? Negative for Intraepithelial Lesion or Malignancy ? Document reviewed and electronically signed by: ? JOANNE Pritchett(ASCP) ? Report Date: ??12/28/2001 12:31 End of Report JONATHON GIL 12/25/2001 12/27/2001 Rohan Thorpe MD PATHOLOGY ORDERABLES [facility] [address] [place] [address] documented in this encounter Visit Diagnoses Not on filedocumented in this encounter Care Teams Industrial Nurse Relationship Specialty Start Date End Date Unknown, Provider, PCP - General 10/02/08 documented as of this encounter
--- OUTSIDE RECORDS SUMMARY | 2023-11-21 18:35 | XMS_ITS | Encounter Summary ---
Author Organization [facility] Address [address] [place] [address] Care Team Providers Care Solar Panel Installation Supervisor Name Role Phone Unknown, Provider Primary Care Provider [phone] Encounter Details Date Type Department Care Team (Late st Contact Info) Description 02/25/2003 Results Only [facility] - Maple conversion [address] [place] [address] Patricia Turner, [address] [phone] Social History Tobacco Use Types Packs/Day Years Used Date Smoking Tobacco: Never Assessed Sex and Gender Information Value Date Recorded Sex Assigned at Not on file Gender Identity Not on file Sexual Orientation Not on file documented as of this encounter Plan of Treatment Not on file documented as of this encounter Procedures Procedure Name Priority Date/Time Associated Diagnosis Comments CYTOPATHOLOGY Routine 02/25/2003 0:00 EST documented in this encounter Results * CYTOPATHOLOGY (02/25/2003 0:00 EST) Pathology Report: CYTOPATHOLOGY REPORT Reports generated via electronic interface contain original data; however they are lacking the format of the original report. Caution should be taken when reading/interpreti ng unformatted reports. Name: ? JOSE ANTONIO CARIAS ? Accession #: ? [id number] : ? 1975 (Age: 27) ??F ?Collect Date: ? 02/25/2003 Location: ? [facility] ? Receive Date: ? 02/27/2003 Provider: ?PATRICIA TURNER BEAD MAKER Copy to: ? Specimen/Source: ?ThinPrep Pap Test, Cervix/Endocervix Last Menstrual Period: ? Hormonal/Contracep tive Status: ? Intrauterine device: Mirena Previous Gynecologic Pathology: ? ASC-US: R/o TORRIE Treatment History: ? Colposcopy: nl Other: ? HPVA - HPV testing requested if ASC-US on the current ThinPrep Pap test. ? SPECIMEN ADEQUACY ? Satisfactory for Evaluation - transformation zone component present GENERAL CATEGORIZATION ? Negative for Intraepithelial Lesion or Malignancy ? Document reviewed and electronically signed by: ? JOANNE Nelson(ASCP)(IAC) ? Report Date: ??03/04/2003 13:36 End of Report JONATHON GIL 02/25/2003 02/27/2003 Patricia Turner BEAD MAKER PATHOLOGY ORDERABLES [facility] [address] [place] [address] documented in this encounter Visit Diagnoses Not on filedocumented in this encounter Care Teams Solar Panel Installation Supervisor Relationship Specialty Start Date End Date Unknown, Provider, PCP - General 10/02/08 documented as of this encounter
--- OUTSIDE RECORDS SUMMARY | 2023-11-21 18:35 | XMS_ITS | Encounter Summary ---
Author Organization [facility] Address [address] [place] [address] Care Team Providers Care Blade Sharpener Name Role Phone Unknown, Provider Primary Care Provider Encounter Details Date Type Department Care Team (Late st Contact Info) Description 09/01/2022 Lab Requisition [facility] Pathology & Laboratory Medicine - [address] [address] Katlyn Ardon MD [address] [place] [address] [place] [phone] Encounter for other general examination Social History Tobacco Use Types Packs/Day Years Used Date Smoking Tobacco: Never Assessed Sex and Gender Information Value Date Recorded Sex Assigned at Not on file Gender Identity Not on file Sexual Orientation Not on file documented as of this encounter Plan of Treatment Not on file documented as of this encounter Procedures Procedure Name Priority Date/Time Associated Diagnosis Comments PAP TEST Today 08/31/2022 9:20 EDT Encounter for other general examination HPV DNA DETECTION WITH GENOTYPING, PCR Today 08/31/2022 9:20 EDT Encounter for other general examination documented in this encounter Results * HUMAN PAPILLOMAVIRUS (HPV) DETECTION-HIGH RISK TYPES (08/31/2022 9:20 EDT) HPV other High Risk types, PCR Negative Negative 09/09/2022 17:30 EDT [facility] Comment:No E6 or E7 mRNA is detected from HPV types 16,18,31,33,35,39,45,51,52,56,58,59,66, and 68 by software engineering specialist mediated amplification. Papanicolaou smear specimen (specimen) CERVIX UTERI STRUCTURE / Unknown 08/31/2022 9:20 EDT 09/08/2022 9:14 EDT Katlyn Ardon MD MICROBIOLOGY - GENER AL ORDERABLES [facility] [address] [place] [phone] * PAP TEST (08/31/2022 9:20 EDT) Specimens A. Cervix and/or Endocervix , ThinPrep Imaging System with Manual Evaluation 09/09/2022 17:30 T [facility] Specimen Adequacy Satisfactory for Evaluation - transformation zone component present 09/09/2022 17:30 [facility] General Categorization Negative for intraepithelial lesion or malignancy 09/09/2022 17:30 [facility] Attestation . 09/09/2022 17:30 [facility] at 1730 Clinical History See below 09/10/19 23 17:30 [facility] HPV The result for the Human Papillomavirus (HPV) Detection-High Risk Types is Negative. No E6 or E7 mRNA is detected from HPV types 16,18,31,33,35,39 ,45,51,52,56,58,5 9,66, and 68 by software engineering specialist mediated amplification.Petty ting was performed on specimen [id number] and was resulted on 09/09/2022 1730 EDT by DAYNA, LAB INSTRUMENT RESULTS IN 09/09/2022 17:30 T [facility] Performing Lab [facility] 09/09/2022 17:30 T [facility] Scanned Images 09/09/2022 17:30 [facility] Papanicolaou smear specimen (specimen) CERVIX UTERI STRUCTURE / Unknown 08/31/2022 9:20 EDT 09/01/2022 14:36 EDT Katlyn Ardon MD PATHOLOGY ORDERABLES [facility] [address] [place] [phone] documented in this encounter Visit Diagnoses Diagnosis Encounter for other general examination documented in this encounter Care Teams Blade Sharpener Relationship Specialty Start Date End Date Unknown, Provider, PCP - General 10/02/08 documented as of this encounter
--- OUTSIDE RECORDS SUMMARY | 2023-11-21 18:35 | XMS_ITS | Encounter Summary ---
Author Organization [facility] Address [address] [place] [address] Care Team Providers Care Window Shade Cutter And Mounter Name Role Phone Unavailable Primary Care Provider Unavailabl e Encounter Details Date Type Department Care Team (Latest Contact Info) Description 04/05/2006 12:29 [facility] Hospital Encounter [facility] - Other [address] [place] [address] [place] [address] Discharge Disposition: Auto Discharge Social History Tobacco Use Types Packs/Day Years Used Date Smoking Tobacco: Never Assessed Sex and Gender Information Value Date Recorded Sex Assigned at Not on file Gender Identity Not on file Sexual Orientation Not on file documented as of this encounter Discharge Disposition Disposition Code Departure Means Destination Auto Discharge documented in this encounter Plan of Treatment Not on file documented as of this encounter Visit Diagnoses Not on filedocumented in this encounter
--- OUTSIDE RECORDS SUMMARY | 2023-11-21 18:35 | XMS_ITS | Encounter Summary ---
Author Organization [facility] Address [address] [place] [address] Care Team Providers Care Refrigeration Plant Operator Name Role Phone Unknown, Provider Primary Care Provider [phone] Encounter Details Date Type Department Care Team (Late st Contact Info) Description 10/27/1999 Results Only [facility] - Maple conversion [address] [place] [address] Rebekah Grey MD [address] [place] [phone] Social History Tobacco Use Types Packs/Day Years Used Date Smoking Tobacco: Never Assessed Sex and Gender Information Value Date Recorded Sex Assigned at Not on file Gender Identity Not on file Sexual Orientation Not on file documented as of this encounter Plan of Treatment Not on file documented as of this encounter Procedures Procedure Name Priority Date/Time Associated Diagnosis Comments CYTOPATHOLOGY Routine 10/27/1999 0:00 EDT documented in this encounter Results * CYTOPATHOLOGY (10/27/1999 0:00 EDT) Pathology Report: CYTOPATHOLOGY REPORT Reports generated via electronic interface contain original data; however they are lacking the format of the original report. Caution should be taken when reading/interpreti ng unformatted reports. Name: ? JOSE ANTONIO CARIAS ? Accession #: ? [id number] : ? 1975 (Age: 24) ??F ?Collect Date: ? 10/27/1999 Location: ? [facility] ? Receive Date: ? 10/29/1999 Provider: ?REBEKAH GREY TOY DESIGNER Copy to: ? Specimen/Source: ?Conventional Pap Test, Cervix/Endocervix Last Menstrual Period: ? 10/11/99 Previous Gynecologic Pathology: ? Yes ? SPECIMEN ADEQUACY ? Satisfactory for evaluation. GENERAL CATEGORIZATION ? Epithelial Cell Abnormality DESCRIPTIVE DIAGNOSIS ? Atypical squamous cells of undetermined significance, cannot rule out squamous intraepithelial lesion (TORRIE). RECOMMENDATION ? Recommend clinical correlation and further evaluation, as clinically indicated. ? Document reviewed and electronically signed by: ? FILIPE EUGENE MD ? Report Date: ??11/05/1999 15:27 End of Report JONATHON GIL 10/27/1999 10/29/1999 Rebekah Grey MD PATHOLOGY ORDERABLES Performing Organization Address City/State/[facility] Co de Phone Number [facility] [address] [place] [address] documented in this encounter Visit Diagnoses Not on filedocumented in this encounter Care Teams Refrigeration Plant Operator Relationship Specialty Start Date End Date Unknown, Provider, PCP - General 10/02/08 documented as of this encounter
--- OUTSIDE RECORDS SUMMARY | 2023-11-21 18:35 | XMS_ITS | Encounter Summary ---
Author Organization [facility] Address [address] [place] [address] Care Team Providers Care Building Specialist Name Role Phone Unknown, Provider Primary Care Provider Encounter Details Date Type Department Care Team (Late st Contact Info) Description 08/05/2005 Results Only [facility] - Maple conversion [address] [place] [address] Patricia Turner, [address] [phone] Social History Tobacco Use Types Packs/Day Years Used Date Smoking Tobacco: Never Assessed Sex and Gender Information Value Date Recorded Sex Assigned at Not on file Gender Identity Not on file Sexual Orientation Not on file documented as of this encounter Plan of Treatment Not on file documented as of this encounter Procedures Procedure Name Priority Date/Time Associated Diagnosis Comments CYTOPATHOLOGY Routine 08/05/2005 0:00 EDT documented in this encounter Results * CYTOPATHOLOGY (08/05/2005 0:00 EDT) Pathology Report: CYTOPATHOLOGY REPORT Reports generated via electronic interface contain original data; however they are lacking the format of the original report. Caution should be taken when reading/interpreti ng unformatted reports. Name: ? JOSE ANTONIO CARIAS ? Accession #: ? [id number] : ? 1975 (Age: 29) ??F ?Collect Date: ? 08/05/2005 Location: ? [facility] ? Receive Date: ? 08/08/2005 Provider: ?PATRICIA TURNER ANALYST BUSINESS ANALYSIS Copy to: ? Specimen/Source: ?ThinPrep Pap Test, Cervix/Endocervix, processed on AOTMP ThinPrep Imaging System, with manual evaluation Last Menstrual Period: ? Hormonal/Contracep tive Status: ? Intrauterine device Previous Gynecologic Pathology: ? ASC-US: R/o TORRIE Treatment History: ? Colposcopy: normal Other: ? HPVA - HPV testing requested if ASC-US on the current ThinPrep Pap test. ? SPECIMEN ADEQUACY ? Satisfactory for Evaluation - transformation zone component present GENERAL CATEGORIZATION ? Negative for Intraepithelial Lesion or Malignancy INTERPRETATION ? Reactive cellular changes associated with inflammation present (includes repair). ? Document reviewed and electronically signed by: ? ROGER DAVEY MD ? Report Date: ??08/11/2005 17:07 End of Report JONATHON GIL 08/05/2005 08/08/2005 Patricia Turner ANALYST BUSINESS ANALYSIS PATHOLOGY ORDERABLES [facility] [address] [place] [address] documented in this encounter Visit Diagnoses Not on filedocumented in this encounter Care Teams Building Specialist Relationship Specialty Start Date End Date Unknown, Provider, PCP - General 10/02/08 documented as of this encounter
--- OUTSIDE RECORDS SUMMARY | 2023-11-21 18:35 | XMS_ITS | Encounter Summary ---
Author Organization [facility] Address [address] [place] [address] Care Team Providers Care Enterprise Solutions Architect Name Role Phone Unknown, Provider Primary Care Provider Encounter Details Date Type Department Care Team (Late st Contact Info) Description 12/11/2000 Results Only [facility] - Maple conversion [address] [place] [address] Rohan Thorpe MD Social History Tobacco Use [...] Priority Date/Time Associated Diagnosis Comments CYTOPATHOLOGY Routine 12/11/2000 0:00 EDT documented in this encounter Results * CYTOPATHOLOGY (12/11/2000 0:00 EDT) Pathology Report: CYTOPATHOLOGY REPORT Reports generated via electronic interface contain original data; however they are lacking the format of the original report. Caution should be taken when reading/interpreti ng unformatted reports. Name: ? JOSE ANTONIO CARIAS ? Accession #: ? [id number] : ? 1975 (Age: 25) ??F ?Collect Date: ? 12/11/2000 Location: ? [facility] ? Receive Date: ? 12/14/2000 Provider: ?ROHAN THORPE MD Copy to: ? Specimen/Source: ?ThinPrep Pap Test, Cervix/Endocervix Last Menstrual Period: ? 12/11/00 Menstrual/Pregnanc y Status: ? Post Previous Gynecologic Pathology: ? Yes Treatment History: ? Colposcopy: 1997 & 1999 Other: ? Additional clinical information: Pap 05/01 nl ? SPECIMEN ADEQUACY ? Satisfactory for evaluation. GENERAL CATEGORIZATION ? Benign Cellular Changes DESCRIPTIVE DIAGNOSIS ? Parakeratosis - surface reaction present. ? Document reviewed and electronically signed by: ? Dalia Mata MD ? Report Date: ??12/20/2000 14:39 End of Report JONATHON GIL 12/11/2000 12/14/2000 Rohan Thorpe MD PATHOLOGY ORDERABLES Performing Organization Address City/State/[facility] Co de Phone Number [facility] [address] [place] [address] documented in this encounter Visit Diagnoses Not on filedocumented in this encounter Care Teams Enterprise Solutions Architect Relationship Specialty Start Date End Date Unknown, Provider, PCP - General 10/02/08 documented as of this encounter
--- OUTSIDE RECORDS SUMMARY | 2023-11-21 18:35 | XMS_ITS | Referral Summary ---
Author Organization [facility] Address [address] [place] [address] Care Team Providers Care Film Rental Clerk Name Role Phone Unknown, Provider Primary Care Provider [phone] Social History Tobacco Use Types Packs/Day Years Used Date Smoking Tobacco: Never Assessed Sex and Gender Information Value Date Recorded Sex Assigned at Not on file Gender Identity Not on file Sexual Orientation Not on file Plan of Treatment Not on file Care Teams Film Rental Clerk Relationship Specialty Start Date End Date Unknown, Provider, PCP - General 10/02/08
--- OUTSIDE RECORDS SUMMARY | 2023-11-21 18:35 | XMS_ITS | Clinical Summary ---
Author Organization [facility] Address [address] [place] [address] Care Team Providers Care Funeral Driver Name Role Phone Unknown, Provider Primary Care Provider Social History Tobacco Use Types Packs/Day Years Used Date Smoking Tobacco: Never Assessed Sex and Gender Information Value Date Recorded Sex Assigned at Not on file Gender Identity Not on file Sexual Orientation Not on file Plan of Treatment Health Maintenance Due Date Last Done Comments Hepatitis C Screen 1975 Hepatitis B Vaccine (1 of 3 - 19+ 3-dose series) 10/03 COVID-19 Vaccine ( season) 2022 Care Teams Funeral Driver Relationship Specialty Start Date End Date Unknown, Provider, PCP - General 10/02/08
--- OUTSIDE RECORDS SUMMARY | 2023-11-21 18:35 | XMS_ITS | Encounter Summary ---
Author Organization [facility] Address [address] [place] [address] Care Team Providers Care Tester Armature Or Fields Name Role Phone Unknown, Provider Primary Care Provider [phone] Encounter Details Date Type Department Care Team (Late st Contact Info) Description 02/21/2013 Results Only [facility] Laboratory Services - [facility] ([facility]) [address] [place], [place] [phone] Patricia Turner, [facility] [address] [place] [address] [place] [phone] Social History Tobacco Use Types Packs/Day Years Used Date Smoking Tobacco: Never Assessed Sex and Gender Information Value Date Recorded Sex Assigned at Not on file Gender Identity Not on file Sexual Orientation Not on file documented as of this encounter Plan of Treatment Not on file documented as of this encounter Procedures Procedure Name Priority Date/Time Associated Diagnosis Comments PAP TEST- RESULT ONLY Routine 02/21/2013 0:00 EDT documented in this encounter Results * PAP TEST- RESULT ONLY (02/21/2013 0:00 EDT) Pathology Report: CYTOPATHOLOGY REPORT Reports generated via electronic interface contain original data; however they are lacking the format of the original report. Caution should be taken when reading/interpreti ng unformatted reports. Name: ? JOSE ANTONIO CARIAS ? Accession #: ? [id number] : ? 1975 (Age: 37) ??F ?Collect Date: ? 02/21/2013 Location: ? [facility] ? Receive Date: ? 02/22/2013 Provider: ?PATRICIA TURNER TELECOMMUNICATIONS ADMINISTRATOR Copy to: ?SIMIN COELLO AGRICULTURAL ENGINEERING TECHNOLOGIST ? Specimen/Source: ?Pap Test, Cervix/Endocervix, ThinPrep Imaging System with manual evaluation Last Menstrual Period: ? Hormonal/Contracep tive Status: ? Intrauterine device: mirena Previous Gynecologic Pathology: ? ASC-US: 2010 R/O LSIL Treatment History: ? Colposcopy: with biopsy benign ? SPECIMEN ADEQUACY ? Satisfactory for Evaluation - transformation zone component present GENERAL CATEGORIZATION ? Negative for Intraepithelial Lesion or Malignancy ? Document reviewed and electronically signed by: ? Angelika Fernando, CT(ASCP) ? Report Date: ??02/28/2013 13:17 End of Report JONATHON GIL 02/21/2013 02/22/2013 Patricia Turner TELECOMMUNICATIONS ADMINISTRATOR PATHOLOGY ORDERABLES JONATHON G[facility] [address] [place] [address] documented in this encounter Visit Diagnoses Not on filedocumented in this encounter Care Teams Tester Armature Or Fields Relationship Specialty Start Date End Date Unknown, Provider, PCP - General 10/02/08 documented as of this encounter
--- OUTSIDE RECORDS SUMMARY | 2023-11-21 18:35 | XMS_ITS ---
Author Organization Unknown Address [address] [place] [phone] Phone Care Team Providers Care Malted Milk Mixer Name Role Phone STEVE Vo Attending Unavailable WARREN Huggins Primary Unavailable Social History Type Status Start Date End Date Code Code Syst em Smoking History Current every day smoker 379963173 SNOMED CT Sex Female Hospital Discharge Instructions [...] Code System No Known Drug Allergies Active 026163382 SNOMED-CT Plan of Treatment US PELVIC / TV 07/05/2023 PRE-OP COVID-19 TESTING 10/01/2021 NM HEPATOBILIARY CCK 09/15/2021 Encounters Encounter Diagnosis Start Date Code Code Sys tem Menopausal and female climacteric states 04/14/2022 SNOMED-CT Personal Care Team Section Performer Name Performer Role Active Date Inactive Da te
--- OUTSIDE RECORDS SUMMARY | 2023-11-21 18:35 | XMS_ITS | Encounter Summary ---
Author Organization [facility] Address [address] [place] [id number] Care Team Providers Care Chemical Laboratory Tester Name Role Phone Unknown, Provider Primary Care Provider Encounter Details Date Type Department Care Team (Late st Contact Info) Description 10/02/2008 Orders Only [facility] Laboratory Services - [facility] ([facility]) [address] [place], [place] [address] Patricia Turner, [facility] [address] [place] [address] [place] [phone] Social History Tobacco Use Types Packs/Day Years Used Date Smoking Tobacco: Never Assessed Sex and Gender Information Value Date Recorded Sex Assigned at Not on file Gender Identity Not on file Sexual Orientation Not on file documented as of this encounter Plan of Treatment Not on file documented as of this encounter Procedures Procedure Name Priority Date/Time Associated Diagnosis Comments CYTOPATHOLOGY Routine 10/02/2008 0:00 EDT documented in this encounter Results * CYTOPATHOLOGY (10/02/2008 0:00 EDT) Pathology Report: CYTOPATHOLOGY REPORT ? Reports generated via electronic interface contain original data; ? however they are lacking the format of the original report. ? Caution should be taken when reading/interpreti ng unformatted reports. ? Name: ? CARRIER, JOSE ANTONIO ? Accession #: ? [id number] ? : ? 1975 (Age: 33) ??F ?Collect Date: ? 10/02/2008 ? Location: ? [facility] ? Receive Date: ? 2008 ? Provider: ?PATRICIA JANETH COMBER SETTER ? Copy to: ? Specimen/Source: ?Pap Test, Cervix/Endocervix, ThinPrep Imaging System ? with manual evaluation ? Last Menstrual Period: ? Previous Gynecologic Pathology: ? ASC-US: Cannot R/o TORRIE 07/00 ? Treatment History: ? Colposcopy: 10/00 wnl ? SPECIMEN ADEQUACY ? Satisfactory for Evaluation ? - transformation zone component present ? GENERAL CATEGORIZATION ? Negative for Intraepithelial Lesion or Malignancy ? INTERPRETATION ? Reactive cellular changes associated with inflammation present (includes ?? repair). ? Document reviewed and electronically signed by: ? YOLANDA MOUNT MD ? Report Date: ??10/09/2008 11:08 ? End of Report ? JONATHON GIL 10/02/2008 2008 Patricia Turner COMBER SETTER PATHOLOGY ORDERABLES [facility] [address] [place] [address] documented in this encounter Visit Diagnoses Not on filedocumented in this encounter Care Teams Chemical Laboratory Tester Relationship Specialty Start Date End Date Unknown, Provider, PCP - General 10/02/08 documented as of this encounter
--- OUTSIDE RECORDS SUMMARY | 2023-11-21 18:35 | XMS_ITS ---
Author Organization Unknown Address [address] [place] [phone] Phone Care Team Providers Care Bracelet Maker Novelty Name Role Phone JOSE Huggins Attending Unavailable WARREN Huggins Primary Unavailable Social History Type Status Start Date End Date Code Code Syst em Smoking History Current every day smoker [id number] SNOMED CT Sex Female Hospital Discharge Instructions [...] Code System No Known Drug Allergies Active [id number] SNOMED-CT Plan of Treatment US PELVIC / TV 07/05/2023 PRE-OP COVID-19 TESTING 10/01/2021 NM HEPATOBILIARY CCK 09/15/2021 Encounters Encounter Diagnosis Start Date Code Code Sys tem Inflammatory disease of cervix uteri 06/12/2023 SNOMED-CT Personal Care Team Section Performer Name Performer Role Active Date Inactive Da te
--- OUTSIDE RECORDS SUMMARY | 2023-11-21 18:35 | XMS_ITS | Encounter Summary ---
Author Organization [facility] Address [address] [place] [address] Care Team Providers Care Automotive Product Specialist Name Role Phone Unknown, Provider Primary Care Provider Encounter Details Date Type Department Care Team (Late st Contact Info) Description 10/31/2022 Lab Requisition [facility]ology [facility] Laboratory Medicine - [address] [address] Outr Resulting Lab, Provider Social History Tobacco Use Types Packs/Day Years Used Date Smoking Tobacco: Never Assessed Sex and Gender Information Value Date Recorded Sex Assigned at Not on file Gender Identity Not on file Sexual Orientation Not on file documented as of this encounter Plan of Treatment Not on file documented as of this encounter Procedures Procedure Name Priority Date/Time Associated Diagnosis Comments T3 FREE Routine 10/31/2022 8:03 EDT documented in this encounter Results * T3 FREE (10/31/2022 8:03 EDT) T3, Free 3.5 2.8 - 5.3 pg/mL 10/31/2022 22:20 EDT [facility] Blood VENOUS BLOOD / Unknown 10/31/2022 8:03 EDT 10/31/2022 21:41 EDT Provider Outr Resulting Lab CHEMISTRY & BLOOD GAS ORDERABLES [facility] [address] [place] [address] documented in this encounter Visit Diagnoses Not on filedocumented in this encounter Care Teams Automotive Product Specialist Relationship Specialty Start Date End Date Unknown, Provider, PCP - General 10/02/08 documented as of this encounter
--- OUTSIDE RECORDS SUMMARY | 2023-11-21 18:35 | XMS_ITS | Encounter Summary ---
Author Organization [facility] Address [address] [place] [address] Care Team Providers Care Student Dean Name Role Phone Unknown, Provider Primary Care Provider [phone] Encounter Details Date Type Department Care Team (Late st Contact Info) Description 02/21/2012 Results Only [facility] Laboratory Services - [facility] ([facility]) [address] [place], [place] [address] Patricia Turner, [facility] [address] [place] [address] [place] [phone] Social History Tobacco Use Types Packs/Day Years [...] Diagnosis Comments PAP TEST- RESULT ONLY Routine 02/21/2012 0:00 EDT documented in this encounter Results * PAP TEST- RESULT ONLY (02/21/2012 0:00 EDT) Pathology Report: CYTOPATHOLOGY REPORT Reports generated via electronic interface contain original data; however they are lacking the format of the original report. Caution should be taken when reading/interpreti ng unformatted reports. Name: ? JOSE ANTONIO CARIAS ? Accession #: ? [id number] : ? 1975 (Age: 36) ??F ?Collect Date: ? 02/21/2012 Location: ? [facility] ? Receive Date: ? 02/22/2012 Provider: ?PATRICIA TURNER LATEX RIBBON MACHINE OPERATOR Copy to: ?SIMIN COELLO OIL WELL CABLE TOOL OPERATOR ? Specimen/Source: ?Pap Test, Cervix/Endocervix, ThinPrep Imaging System with manual evaluation Last Menstrual Period: ? Hormonal/Contracep tive Status: ? Intrauterine device: Mirena Previous Gynecologic Pathology: ? ASC-US: 11/07 cannot r/o TORRIE Treatment History: ? Colposcopy: 02/07 normal ? SPECIMEN ADEQUACY ? Satisfactory for Evaluation - transformation zone component present GENERAL CATEGORIZATION ? Negative for Intraepithelial Lesion or Malignancy ? Document reviewed and electronically signed by: ? JOANNE Hughes(ASCP) ? Report Date: ??02/28/2012 08:27 End of Report JONATHON GIL 02/21/2012 02/22/2012 Patricia Turner LATEX RIBBON MACHINE OPERATOR PATHOLOGY ORDERABLES [facility] [address] [place] [address] documented in this encounter Visit Diagnoses Not on filedocumented in this encounter Care Teams Student Dean Relationship Specialty Start Date End Date Unknown, Provider, PCP - General 10/02/08 documented as of this encounter
--- OUTSIDE RECORDS SUMMARY | 2023-11-21 18:35 | XMS_ITS | Encounter Summary ---
Author Organization [facility] Address [address] [place] [address] Care Team Providers Care Hand Alterations Tailor Name Role Phone Unknown, Provider Primary Care Provider [phone] Encounter Details Date Type Department Care Team (Late st Contact Info) Description 02/17/2011 Results Only [facility] Laboratory Services - [facility] ([facility]) [address] [place], [place] [phone] Patricia Turner, [facility] [address] [place] [address] [place] [phone] Social History Tobacco Use Types Packs/Day Years [...] Diagnosis Comments PAP TEST- RESULT ONLY Routine 02/17/2011 0:00 EDT documented in this encounter Results * PAP TEST- RESULT ONLY (02/17/2011 0:00 EDT) Pathology Report: CYTOPATHOLOGY REPORT Reports generated via electronic interface contain original data; however they are lacking the format of the original report. Caution should be taken when reading/interpreti ng unformatted reports. Name: ? JOSE ANTONIO CARIAS ? Accession #: ? [id number] : ? 1975 (Age: 35) ??F ?Collect Date: ? 02/17/2011 Location: ? [facility] ? Receive Date: ? 02/18/2011 Provider: ?PATRICIA TURNER OCCUPATIONAL ANALYST Copy to: ?SIMIN COELLO CYTOGENETICS LABORATORY MANAGER ? Specimen/Source: ?Pap Test, Cervix/Endocervix, ThinPrep Imaging System with manual evaluation Last Menstrual Period: ? Hormonal/Contracep tive Status: ? Intrauterine device: mirena Previous Gynecologic Pathology: ? ASC-US: cannot R/O TORRIE Treatment History: ? Colposcopy: WNL ? SPECIMEN ADEQUACY ? Satisfactory for Evaluation - transformation zone component present GENERAL CATEGORIZATION ? Negative for Intraepithelial Lesion or Malignancy INTERPRETATION ? Reactive cellular changes associated with inflammation present (includes repair). Shift in haile present suggestive of bacterial vaginosis. ? Document reviewed and electronically signed by: ? DUNIA MANN MD ? Report Date: ??02/28/2011 16:11 End of Report JONATHON GIL 02/17/2011 02/18/2011 Patricia Turner OCCUPATIONAL ANALYST PATHOLOGY ORDERABLES JONATHON GIL [address] [place] [address] documented in this encounter Visit Diagnoses Not on filedocumented in this encounter Care Teams Hand Alterations Tailor Relationship Specialty Start Date End Date Unknown, Provider, PCP - General 10/02/08 documented as of this encounter
--- OUTSIDE RECORDS SUMMARY | 2023-11-21 18:35 | XMS_ITS | Encounter Summary ---
Author Organization [facility] Address [address] [place] [address] Care Team Providers Care Paper Supervisor Name Role Phone Unknown, Provider Primary Care Provider [phone] Encounter Details Date Type Department Care Team (Late st Contact Info) Description 05/05/2000 Results Only [facility] - Maple conversion [address] [place] [address] Rohan Thorpe MD Social History Tobacco Use [...] Priority Date/Time Associated Diagnosis Comments CYTOPATHOLOGY Routine 05/05/2000 0:00 EST documented in this encounter Results * CYTOPATHOLOGY (05/05/2000 0:00 EST) Pathology Report: CYTOPATHOLOGY REPORT Reports generated via electronic interface contain original data; however they are lacking the format of the original report. Caution should be taken when reading/interpreti ng unformatted reports. Name: ? JOSE ANTONIO CARIAS ? Accession #: ? [id number] : ? 1975 (Age: 24) ??F ?Collect Date: ? 05/05/2000 Location: ? [facility] ? Receive Date: ? 05/08/2000 Provider: ?ROHAN THORPE MD Copy to: ? Specimen/Source: ?ThinPrep Pap Test, Cervix/Endocervix Last Menstrual Period: ? Menstrual/Pregnanc y Status: ? Previous Gynecologic Pathology: ? Yes: 1997 & 1999 Treatment History: ? Colposcopy: 1997 & 1999 Other: ? Additional clinical information: Pt unsure what abnormality was. No records from prior. ? SPECIMEN ADEQUACY ? Satisfactory for evaluation. GENERAL CATEGORIZATION ? Benign Cellular Changes DESCRIPTIVE DIAGNOSIS ? Predominance of coccobacilli present consistent with shift in vaginal haile. ? Document reviewed and electronically signed by: ? JOANNE Shaver(ASCP) ? Report Date: ??05/09/2000 07:56 End of Report JONATHON GIL 05/05/2000 05/08/2000 Rohan Thorpe MD PATHOLOGY ORDERABLES Performing Organization Address City/State/[facility] Co de Phone Number JONATHON GIL [address] [place] [address] documented in this encounter Visit Diagnoses Not on filedocumented in this encounter Care Teams Paper Supervisor Relationship Specialty Start Date End Date Unknown, Provider, PCP - General 10/02/08 documented as of this encounter
--- OUTSIDE RECORDS SUMMARY | 2023-11-21 18:35 | XMS_ITS | Encounter Summary ---
Author Organization [facility] Address [address] [place] [address] Care Team Providers Care Tumbling Instructor Name Role Phone Unknown, Provider Primary Care Provider Encounter Details Date Type Department Care Team (Late st Contact Info) Description 07/14/2004 Results Only [facility] - Maple conversion [address] [place] [address] Patricia Turner, [address] [phone] Social History Tobacco Use Types Packs/Day Years Used Date Smoking Tobacco: Never Assessed Sex and Gender Information Value Date Recorded Sex Assigned at Not on file Gender Identity Not on file Sexual Orientation Not on file documented as of this encounter Plan of Treatment Not on file documented as of this encounter Procedures Procedure Name Priority Date/Time Associated Diagnosis Comments CYTOPATHOLOGY Routine 07/14/2004 0:00 EST documented in this encounter Results * CYTOPATHOLOGY (07/14/2004 0:00 EST) Pathology Report: CYTOPATHOLOGY REPORT Reports generated via electronic interface contain original data; however they are lacking the format of the original report. Caution should be taken when reading/interpreti ng unformatted reports. Name: ? JOSE ANTONIO CARIAS ? Accession #: ? [id number] : ? 1975 (Age: 28) ??F ?Collect Date: ? 07/14/2004 Location: ? [facility] ? Receive Date: ? 07/16/2004 Provider: ?PATRICIA TURNER RN LACTATION CONSULTANT Copy to: ? Specimen/Source: ?ThinPrep Pap Test, Cervix/Endocervix Last Menstrual Period: ? Hormonal/Contracep tive Status: ? Intrauterine device: Mirena Previous Gynecologic Pathology: ? ASC-US: R/o TORRIE Treatment History: ? Colposcopy: normal ? SPECIMEN ADEQUACY ? Satisfactory for Evaluation - transformation zone component present GENERAL CATEGORIZATION ? Negative for Intraepithelial Lesion or Malignancy INTERPRETATION ? Shift in haile present suggestive of bacterial vaginosis. ? Document reviewed and electronically signed by: ? Jackelin Mills, [facility](ASCP) ? Report Date: ??07/20/2004 13:18 End of Report JONATHON GIL 07/14/2004 07/16/2004 Patricia Turner RN LACTATION CONSULTANT PATHOLOGY ORDERABLES [facility] [address] [place] [address] documented in this encounter Visit Diagnoses Not on filedocumented in this encounter Care Teams Tumbling Instructor Relationship Specialty Start Date End Date Unknown, Provider, PCP - General 10/02/08 documented as of this encounter
--- OUTSIDE RECORDS SUMMARY | 2023-11-21 18:35 | XMS_ITS ---
Author Organization Unknown Address [address] [place] [address] [phone] Phone Care Team Providers Care Geriatric Nursing Assistant Name Role Phone IVIS Choe Attending Unavailable NICA Vo Primary Unavailable Results [facility] - [place] ect Date/Time: 10/01/2021 10:09 [facility] ID: [id number] [address] [place], [place], [phone] LOINC: 85062-8 Test Value Unit Reference Range Code Code System Flag Tier- PRE-OP 75066-5 LOINC SARS COV2 RNA: NEGATIVE REFERENCE RANGE: NEGAT 22417-9 L OINC Social History Type Status Start Date End Date Code Code Syst em Smoking History Current every day smoker 454764446 SNOMED CT Sex Female Hospital Discharge Instructions [...] Code System No Known Drug Allergies Active 024953440 SNOMED-CT Plan of Treatment US PELVIC / TV 07/05/2023 PRE-OP COVID-19 TESTING 10/01/2021 [facility] HEPATOBILIARY CCK 09/15/2021 Encounters Encounter Diagnosis Start Date Code Code Sys tem Pre-surgery testing 10/01/2021 408275948 SNOMED-C T Personal Care Team Section Performer Name Performer Role Active Date Inactive Da te
--- OUTSIDE RECORDS SUMMARY | 2023-11-21 18:35 | XMS_ITS ---
Author Organization Unknown Address [address] [place] [address] [phone] Phone Care Team Providers Care Family Life Educator Name Role Phone JOSE Huggins Attending Unavailable WARREN Huggins Primary Unavailable Social History Type Status Start Date End Date Code Code Syst em Smoking History Current every day smoker 564429617 SNOMED CT Sex Female Hospital Discharge Instructions [...] Code System No Known Drug Allergies Active 021880039 SNOMED-CT Plan of Treatment US PELVIC / TV 07/05/2023 PRE-OP COVID-19 TESTING 10/01/2021 [facility] HEPATOBILIARY CCK 09/15/2021 Encounters Encounter Diagnosis Start Date Code Code Sys tem Noninflammatory cervical disorder 06/07/2023 3003425 07 SNOMED-CT Personal Care Team Section Performer Name Performer Role Active Date Inactive Da te
--- OUTSIDE RECORDS SUMMARY | 2023-11-21 18:35 | XMS_ITS | Encounter Summary ---
Author Organization [facility] Address [address] [place] [address] Care Team Providers Care Real Estate Agency Licensee Name Role Phone Unknown, Provider Primary Care Provider Encounter Details Date Type Department Care Team (Late st Contact Info) Description 02/03/2015 Results Only [facility] [phone] Patricia Turner, [address] [place] [phone] Social History Tobacco Use Types Packs/Day Years [...] Diagnosis Comments PAP TEST- RESULT ONLY Routine 02/03/2015 0:00 EDT documented in this encounter Results * PAP TEST- RESULT ONLY (02/03/2015 0:00 EDT) Pathology Report: CYTOPATHOLOGY REPORT Reports generated via electronic interface contain original data; however they are lacking the format of the original report. Caution should be taken when reading/interpreti ng unformatted reports. Name: ? JOSE ANTONIO CARIAS ? Accession #: ? [id number] ? : ? 1975 (Age: 39) ??F ?Collect Date: ? 02/03/2015 ? Location: ? [facility] ? Receive Date: ? 02/04/2015 ? Provider: PATRICIA TURNER PROFESSOR OF COMMUNICATION Copy to: SIMIN COELLO DIRECTOR MICROBIOLOGY ? Final Report SPECIMEN ADEQUACY ? Satisfactory for Evaluation - transformation zone component present GENERAL CATEGORIZATION ? Negative for Intraepithelial Lesion or Malignancy ?? Hormonal/Contracep tive status: Intrauterine device: Mirena Specimen/Source: ??Pap Test, Cervix/Endocervix, ThinPrep Imaging System with manual evaluation Document reviewed and electronically signed by: ? JOANNE Page(ASCP) ? Report ??Date: 02/05/2015 11:34 HPV with Pap Test ? Date Ordered: ? 02/05/2015 ? Status: ?? Signed Out ?Date Complete: ? 02/09/2015 ? By: ??System Interface ? Date Reported: ? 02/09/2015 ? Interpretation RESULT: Negative for HPV. No E6 or E7 mRNA is detected from HPV types 16,18,31,33,35, 39,45,51,52,56,58, 59,66, and 68 by station superintendent mediated amplification. Comments Document reviewed and electronically signed by: ? System Interface ? Report date: 02/09/2015 By the signature above, the attending physician certifies that he/she has personally conducted a gross and/or microscopic examination of the described specimens and rendered or confirmed the above diagnosis. End of Report [facility] 02/03/2015 02/04/2015 Patricia Turner PROFESSOR OF COMMUNICATION PATHOLOGY ORDERABLES [facility] [address] [place] [address] documented in this encounter Visit Diagnoses Not on filedocumented in this encounter Care Teams Real Estate Agency Licensee Relationship Specialty Start Date End Date Unknown, Provider, PCP - General 10/02/08 documented as of this encounter
== END 2023-11-21 18:30 | disposition home or self-care (01) ==
LOC: LBN 18:29
PROVIDERS: PCP Obstetrics & Gynecology; Visit Provider Nurse Practitioner Women's Health
DX: N76.0 Acute vaginitis (principal)
CPT/HCPCS: 87480; 87510; 87660

== ENCOUNTER 2023-12-18 02:13 | Outpatient (CLI) | payer BC, SELFPAY ==
--- OUTSIDE RECORDS SUMMARY | 2023-12-18 02:20 | XMS_ITS ---
Author Organization Unknown Address [address] [place] [phone] Phone Care Team Providers Care Traffic Signal Repairer Name Role Phone WARREN Huggins Attending Unavailable [...] D Wednesday, September 15, 2021 3:05:10 PM [id number] Electronically Reviewed and Signed By: DOTTIE ROLAND MD 09/18/21 16:56 Copy for: WARREN Huggins via modem Copy for: NICA Vo via fax Copy for: [facility] MGMT Social History Type Status Start Date End Date Code Code Syst em Smoking History Current every day smoker 967594823 SNOMED CT Sex Female Hospital Discharge Instructions [...] Code System No Known Drug Allergies Active 871217712 SNOMED-CT Plan of Treatment US PELVIC / TV 07/05/2023 PRE-OP COVID-19 TESTING 10/01/2021 [facility] HEPATOBILIARY CCK 09/15/2021 Encounters Encounter Diagnosis Start Date Code Code Sys tem Right upper quadrant pain 09/15/2021 SN OMED-CT Personal Care Team Section Performer Name Performer Role Active Date Inactive Da te
--- OUTSIDE RECORDS SUMMARY | 2023-12-18 02:20 | XMS_ITS ---
Author Organization Unknown Address [address] [place] [phone] Phone Care Team Providers Care Construction Administrative Assistant Name Role Phone MISA Martínez Attending Unavailable NICA Vo Primary Unavailable Social History Type Status Start Date End Date Code Code Syst em Smoking History Current every day smoker 780568585 SNOMED CT Sex Female Hospital Discharge Instructions [...] Code System No Known Drug Allergies Active 039245015 SNOMED-CT Plan of Treatment US PELVIC / TV 07/05/2023 PRE-OP COVID-19 TESTING 10/01/2021 [facility] HEPATOBILIARY CCK 09/15/2021 Encounters Encounter Diagnosis Start Date Code Code Sys tem Removal of suture 06/14/2021 66777273 SNOMED-CT Personal Care Team Section Performer Name Performer Role Active Date Inactive Da te
--- OUTSIDE RECORDS SUMMARY | 2023-12-18 02:20 | XMS_ITS ---
Author Organization Unknown Address [address] [place] [phone] Phone Care Team Providers Care Doula Name Role Phone CARMEN Vo Attending Unavailable NICA Vo Primary Unavailable Results [facility] - [place] ect Date/Time: 06/02/2021 10:07 [facility] ID: [id number] [address] [place], [place], [id number] LOINC: 12186-7 Test Value Unit Reference Range Code Code System Flag Tier- PRE-OP 30555-3 LOINC SARS COV2 RNA: NEGATIVE REFERENCE RANGE: NEGAT 44937-8 L OINC Social History Type Status Start Date End Date Code Code Syst em Smoking History Current every day smoker 624342619 SNOMED CT Sex Female Hospital Discharge Instructions [...] Code System No Known Drug Allergies Active 572718886 SNOMED-CT Plan of Treatment US PELVIC / TV 07/05/2023 PRE-OP COVID-19 TESTING 10/01/2021 [facility] HEPATOBILIARY CCK 09/15/2021 Encounters Encounter Diagnosis Start Date Code Code Sys tem Pre-surgery testing 06/02/2021 681687458 SNOMED-C T Personal Care Team Section Performer Name Performer Role Active Date Inactive Da te
--- OUTSIDE RECORDS SUMMARY | 2023-12-18 02:20 | XMS_ITS ---
Author Organization Unknown Address [address] [place] [address] [phone] Phone Care Team Providers Care Research Animal Attendant Name Role Phone IVIS Choe Attending Unavailable WARREN Huggins Primary Unavailable Social History Type Status Start Date End Date Code Code Syst em Smoking History Current every day smoker 425156835 SNOMED CT Sex Female Vital Signs Vital Sign Value Unit Refugio Value Refugio Unit Date/Time Recent/Initial? Code Code System Systolic Blood Pressure 98 mm[Hg] 10/04/2021 16:14 Most Recent 8480-6 LOINC Diastolic Blood Pressure 61 mm[Hg] 10/04/2021 16:14 Most Recent 8462-4 LOINC Systolic Blood Pressure 101 mm[Hg] 10/04/2021 16:13 Initial 8480-6 LOINC Diastolic Blood Pressure 59 mm[Hg] 10/04/2021 16:13 Initial 8462-4 LOINC O2 Saturation 99 % 2021 16:14 Most Recent 59513- 5 LOINC O2 Saturation 99 % 2021 16:13 Initial 59055- 5 LOINC Pulse 66.0 /min 10/04/2021 16:14 Most Recent 8867-4 LOINC Pulse 68.0 /min 10/04/2021 16:13 Initial 8867-4 LOINC Respiration 14 /min 10/05/19 22 16:14 Most Recent 9279-1 LOINC Respiration 16 /min 10/05/19 22 16:13 Initial 9279-1 LOINC Hospital Discharge Instructions [...] To Splenic Flexure; w/Bx, Single/Multiple 10/04/2021 completed 16178 C PT Allergies and Adverse Reactions Allergy Substance Reaction Severity Start Date Concern Status Co de Code System No Known Drug Allergies Active 794186945 SNOMED-CT Plan of Treatment US PELVIC / TV 07/05/2023 PRE-OP COVID-19 TESTING 10/01/2021 [facility] HEPATOBILIARY CCK 09/15/2021 Encounters Encounter Diagnosis Start Date Code Code Sys tem Right upper quadrant pain 10/04/2021 SN OMED-CT Personal Care Team Section Performer Name Performer Role Active Date Inactive Da te
--- OUTSIDE RECORDS SUMMARY | 2023-12-18 02:20 | XMS_ITS ---
Author Organization Unknown Address [address] [place] [phone] Phone Care Team Providers Care Courtesy Booth Cashier Name Role Phone CARMEN Vo Attending Unavailable BETO Geiger Physician Research Food Technologist Unavailable NICA SINCLAIR S Primary Unavailable Social History Type Status Start Date End Date Code Code Syst em Smoking History Current every day smoker 258261279 SNOMED CT Sex Female Hospital Discharge Instructions [...] Median Nerve At Carpal Tunnel 06/04/2021 completed 09883 CPT Allergies and Adverse Reactions Allergy Substance Reaction Severity Start Date Concern Status Co de Code System No Known Drug Allergies Active 929946105 SNOMED-CT Plan of Treatment US PELVIC / TV 07/05/2023 PRE-OP COVID-19 TESTING 10/01/2021 [facility] HEPATOBILIARY CCK 09/15/2021 Encounters Encounter Diagnosis Start Date Code Code Sys tem Carpal tunnel syndrome, bilateral upper limbs 06/04/19 22 SNOMED-CT Personal Care Team Section Performer Name Performer Role Active Date Inactive Da te
--- OUTSIDE RECORDS SUMMARY | 2023-12-18 02:20 | XMS_ITS ---
Author Organization Unknown Address [address] [place] [address] [phone] Phone Care Team Providers Care Asp Net C Developer Name Role Phone BETO Geiger Attending Unavailable [...] DIEGO OLGUIN MD Transcribed by: ANTIONETTE 05/19/21/15:58 [id number] Electronically Reviewed and Signed By: GREG OLGUIN MD 05/19/21 16:58 Copy for: 185 HEALTH INFORMATION MGMT Social History Type Status Start Date End Date Code Code Syst em Smoking History Current every day smoker 419810638 SNOMED CT Sex Female Hospital Discharge Instructions [...] Code System No Known Drug Allergies Active 056196490 SNOMED-CT Plan of Treatment US PELVIC / TV 07/05/2023 PRE-OP COVID-19 TESTING 10/01/2021 [facility] HEPATOBILIARY CCK 09/15/2021 Encounters Encounter Diagnosis Start Date Code Code Sys tem 05/19/2021 [id number] SNOMED-CT Personal Care Team Section Performer Name Performer Role Active Date Inactive Da te
--- OUTSIDE RECORDS SUMMARY | 2023-12-18 02:20 | XMS_ITS ---
Author Organization Unknown Address [address] [place] [address] [phone] Phone Care Team Providers Care Trading Analyst Name Role Phone CARMEN Vo Attending Unavailable NICA Vo Primary Unavailable Social History Type Status Start Date End Date Code Code Syst em Smoking History Current every day smoker 653774163 SNOMED CT Sex Female Hospital Discharge Instructions Should you have any questions prior to discharge, please contact a member of your healthcare team. If you have left the hospital and have any questions, please contact your primary care physician. Reason For Referral No Data Found Procedures Procedure Name Date Status Code Code Syste m NEUROPLASTY &/TRANSPOS MEDIA N NRV CARPAL TUNNE 06/04/2021 completed 174573577 SNOMEDCT Allergies and Adverse Reactions Allergy Substance Reaction Severity Start Date Concern Status Co de Code System No Known Drug Allergies Active 697994837 SNOMED-CT Plan of Treatment US PELVIC / TV 07/05/2023 PRE-OP COVID-19 TESTING 10/01/2021 [facility] HEPATOBILIARY CCK 09/15/2021 Encounters Encounter Diagnosis Start Date Code Code Sys tem 06/04/2021 [id number] SNOMED-CT Personal Care Team Section Performer Name Performer Role Active Date Inactive Da eli
--- OUTSIDE RECORDS SUMMARY | 2023-12-18 02:21 | XMS_ITS ---
Author Organization Unknown Address [address] [place] [address] [phone] Phone Care Team Providers Care Undergraduate Advisor Name Role Phone STEVE Vo Attending Unavailable WARREN Huggins Primary Unavailable Social History Type Status Start Date End Date Code Code Syst em Smoking History Current every day smoker 909456748 SNOMED CT Sex Female Hospital Discharge Instructions [...] Code System No Known Drug Allergies Active 641236951 SNOMED-CT Plan of Treatment US PELVIC / TV 07/05/2023 PRE-OP COVID-19 TESTING 10/01/2021 [facility] HEPATOBILIARY CCK 09/15/2021 Encounters Encounter Diagnosis Start Date Code Code Sys tem Menopausal and female climacteric states 04/14/2022 SNOMED-CT Personal Care Team Section Performer Name Performer Role Active Date Inactive Da te
--- OUTSIDE RECORDS SUMMARY | 2023-12-18 02:21 | XMS_ITS ---
Author Organization Unknown Address [address] [place] [phone] Phone Care Team Providers Care Laborer Cheesemaking Name Role Phone IVIS Choe Attending Unavailable NICA Vo Primary Unavailable Results [facility] - [place] ect Date/Time: 10/01/2021 10:09 [facility] ID: [id number] [address] [place], [place], [id number] LOINC: 13818-1 Test Value Unit Reference Range Code Code System Flag Tier- PRE-OP 50975-0 LOINC SARS COV2 RNA: NEGATIVE REFERENCE RANGE: NEGAT 09868-1 L OINC Social History Type Status Start Date End Date Code Code Syst em Smoking History Current every day smoker 684445872 SNOMED CT Sex Female Hospital Discharge Instructions [...] Code System No Known Drug Allergies Active 626135311 SNOMED-CT Plan of Treatment US PELVIC / TV 07/05/2023 PRE-OP COVID-19 TESTING 10/01/2021 [facility] HEPATOBILIARY CCK 09/15/2021 Encounters Encounter Diagnosis Start Date Code Code Sys tem Pre-surgery testing 10/01/2021 491016655 SNOMED-C T Personal Care Team Section Performer Name Performer Role Active Date Inactive Da te
--- OUTSIDE RECORDS SUMMARY | 2023-12-18 02:21 | XMS_ITS ---
Author Organization Unknown Address [address] [place] [phone] Phone Care Team Providers Care Powerhouse Electrician Name Role Phone JOSE Huggins Attending Unavailable WARREN Huggins Primary Unavailable Social History Type Status Start Date End Date Code Code Syst em Smoking History Current every day smoker 872064301 SNOMED CT Sex Female Hospital Discharge Instructions [...] Code System No Known Drug Allergies Active 062084218 SNOMED-CT Plan of Treatment US PELVIC / TV 07/05/2023 PRE-OP COVID-19 TESTING 10/01/2021 [facility] HEPATOBILIARY CCK 09/15/2021 Encounters Encounter Diagnosis Start Date Code Code Sys tem Noninflammatory cervical disorder 06/07/2023 3346305 07 SNOMED-CT Personal Care Team Section Performer Name Performer Role Active Date Inactive Da te
--- OUTSIDE RECORDS SUMMARY | 2023-12-18 02:22 | XMS_ITS | Encounter Summary ---
Author Organization [facility] Address [address] [place] [address] Care Team Providers Care Supervisor Customer Records Division Name Role Phone Unknown, Provider Primary Care Provider Encounter Details Date Type Department Care Team (Late st Contact Info) Description 02/21/2013 Results Only [facility] ([facility] [address] [place], [place] [address] Patricia Turner, [facility] [address] [place] [address] [place] [phone] Social History Tobacco Use Types Packs/Day Years [...] JOSE ANTONIO CARIAS ? Accession #: ? [id number] : ? 1975 (Age: 37) ??F ?Collect Date: ? 02/21/2013 Location: ? [facility] ? Receive Date: ? 02/22/2013 Provider: ?PATRICIA TURNER PULL WORKER Copy to: ?SIMIN COELLO LETTER STAMPING MACHINE OPERATOR ? Specimen/Source: ?Pap Test, Cervix/Endocervix, ThinPrep [...] Report JONATHON GIL 02/21/2013 02/22/2013 Patricia Turner PULL WORKER PATHOLOGY ORDERABLES JONATHON GIL [address] [place] [address] documented in this encounter Visit Diagnoses Not on filedocumented in this encounter Care Teams Supervisor Customer Records Division Relationship Specialty Start Date End Date Unknown, Provider, PCP - General 10/02/08 documented as of this encounter
--- OUTSIDE RECORDS SUMMARY | 2023-12-18 02:22 | XMS_ITS | Encounter Summary ---
Author Organization [facility] Address [address] [place] [address] Care Team Providers Care Tracing Lathe Set Up Operator Name Role Phone Unknown, Provider Primary Care Provider [phone] Encounter Details Date Type Department Care Team (Late st Contact Info) Description 08/05/2005 Results Only [facility] - Maple conversion [address] [place] [address] Patricia Turner, [address] [phone] Social History Tobacco Use Types Packs/Day Years [...] JOSE ANTONIO CARIAS ? Accession #: ? [id number] : ? 1975 (Age: 29) ??F ?Collect Date: ? 08/05/2005 Location: ? [facility] ? Receive Date: ? 08/08/2005 Provider: ?PATRICIA TURNER PHOTOGRAMMETRIC STEREO COMPILER Copy to: ? Specimen/Source: ?ThinPrep Pap Test, Cervix/Endocervix, processed on [employer] ThinPrep Imaging System, with manual evaluation Last [...] Report JONATHON GIL 08/05/2005 08/08/2005 Patricia Turner PHOTOGRAMMETRIC STEREO COMPILER PATHOLOGY ORDERABLES JONATHON GIL [address] [place] [address] documented in this encounter Visit Diagnoses Not on filedocumented in this encounter Care Teams Tracing Lathe Set Up Operator Relationship Specialty Start Date End Date Unknown, Provider, PCP - General 10/02/08 documented as of this encounter
--- OUTSIDE RECORDS SUMMARY | 2023-12-18 02:22 | XMS_ITS | Referral Summary ---
Author Organization [facility] Address [address] [place] [address] Care Team Providers Care Physical Security Specialist Name Role Phone Unknown, Provider Primary Care Provider Social History Tobacco Use Types Packs/Day Years Used Date Smoking Tobacco: Never Assessed Sex and Gender Information Value Date Recorded Sex Assigned at Not on file Gender Identity Not on file Sexual Orientation Not on file Plan of Treatment Not on file Care Teams Physical Security Specialist Relationship Specialty Start Date End Date Unknown, Provider, PCP - General 10/02/08
--- OUTSIDE RECORDS SUMMARY | 2023-12-18 02:22 | XMS_ITS | Encounter Summary ---
Author Organization [facility] Address [address] [place] [address] Care Team Providers Care Billing Analyst Name Role Phone Unknown, Provider Primary Care Provider Encounter Details Date Type Department Care Team (Late st Contact Info) Description 12/25/2001 Results Only [facility] - Maple conversion [address] [place] [address] Rohan Thorpe MD Social History Tobacco Use [...] JOSE ANTONIO CARIAS ? Accession #: ? [id number] : ? 1975 (Age: 26) ??F ?Collect [...] Thorpe MD PATHOLOGY ORDERABLES JONATHON GIL [address] [place] [address] documented in this encounter Visit Diagnoses Not on filedocumented in this encounter Care Teams Billing Analyst Relationship Specialty Start Date End Date Unknown, Provider, PCP - General 10/02/08 documented as of this encounter
--- OUTSIDE RECORDS SUMMARY | 2023-12-18 02:22 | XMS_ITS | Encounter Summary ---
Author Organization [facility] Address [address] [place] [address] Care Team Providers Care Ship Keeper Name Role Phone Unknown, Provider Primary Care Provider [phone] Encounter Details Date Type Department Care Team (Late st Contact Info) Description 10/02/2008 Orders Only [facility] Laboratory Services - [facility] ([facility]) [address] [place], [place] [address] Patricia Turner, [facility] [address] [place] [address] [place] [phone] Social History Tobacco Use Types Packs/Day Years [...] CARRIER, JOSE ANTONIO ? Accession #: ? [id number] ? : ? 1975 (Age: 33) ??F ?Collect Date: ? 10/02/2008 ? Location: ? [facility] ? Receive Date: ? 2008 ? Provider: ?PATRICIA JANETH SKY LINE YARDER ? Copy to: ? Specimen/Source: ?Pap Test, [...] ? JONATHON GIL 10/02/2008 2008 Patricia Turner SKY LINE YARDER PATHOLOGY ORDERABLES [facility] [address] [place] [address] documented in this encounter Visit Diagnoses Not on filedocumented in this encounter Care Teams Ship Keeper Relationship Specialty Start Date End Date Unknown, Provider, PCP - General 10/02/08 documented as of this encounter
--- OUTSIDE RECORDS SUMMARY | 2023-12-18 02:22 | XMS_ITS | Encounter Summary ---
Author Organization [facility] Address [address] [place] [address] Care Team Providers Care Rhia Name Role Phone Unknown, Provider Primary Care Provider [phone] Encounter Details Date Type Department Care Team (Late st Contact Info) Description 10/27/1999 Results Only [facility] - Maple conversion [address] [place] [address] Rebekah Grey MD [address] [place] [phone] Social History Tobacco Use Types Packs/Day [...] JOSE ANTONIO CARIAS ? Accession #: ? [id number] : ? 1975 (Age: 24) ??F ?Collect Date: ? 10/27/1999 Location: ? [facility] ? Receive Date: ? 10/29/1999 Provider: ?REBEKAH GREY EDITOR MAGAZINE Copy to: ? Specimen/Source: ?Conventional Pap Test, [...] Grey MD PATHOLOGY ORDERABLES Performing Organization Address City/State/[facility] Co de Phone Number [facility] [address] [place] [address] documented in this encounter Visit Diagnoses Not on filedocumented in this encounter Care Teams Rhia Relationship Specialty Start Date End Date Unknown, Provider, PCP - General 10/02/08 documented as of this encounter
--- OUTSIDE RECORDS SUMMARY | 2023-12-18 02:22 | XMS_ITS | Encounter Summary ---
Author Organization [facility] Address [address] [place] [address] Care Team Providers Care Proposal Director Name Role Phone Unknown, Provider Primary Care Provider Encounter Details Date Type Department Care Team (Late st Contact Info) Description 11/13/2006 Results Only [facility] - Maple conversion [address] [place] [address] [place] [address] Social History Tobacco Use Types Packs/Day Years [...] JOSE ANTONIO CARIAS ? Accession #: ? [id number] : ? 1975 (Age: 31) ??F ?Collect Date: ? 11/13/2006 Location: ? [facility] ? Receive Date: ? 11/14/2006 Provider: ?MIRNA OCAMPO CNM Copy to: ? Specimen/Source: ?ThinPrep Pap Test, Cervix/Endocervix, processed on Xquva ThinPrep Imaging System, with manual evaluation Last [...] Report JONATHON GIL 11/13/2006 11/14/2006 Mirna Ocampo ADRÁIN PATHOLOGY ORDERABLES [facility] [address] [place] [address] documented in this encounter Visit Diagnoses Not on filedocumented in this encounter Care Teams Proposal Director Relationship Specialty Start Date End Date Unknown, Provider, PCP - General 10/02/08 documented as of this encounter
--- OUTSIDE RECORDS SUMMARY | 2023-12-18 02:22 | XMS_ITS | Encounter Summary ---
Author Organization [facility] Address [address] [place] [address] Care Team Providers Care Organic Chemistry Teacher Name Role Phone Unknown, Provider Primary Care Provider Encounter Details Date Type Department Care Team (Late st Contact Info) Description 09/01/2022 Lab Requisition [facility] Pathology & Laboratory Medicine - [address] [address] Katlyn Ardon MD [address] [place] [address] [place] [phone] Encounter for other general examination Social History [...] types, PCR Negative Negative 09/09/2022 17:30 EDT [facility] Comment:No E6 or E7 mRNA is detected from HPV types 16,18,31,33,35,39,45,51,52,56,58,59,66, and 68 by market basket maker mediated amplification. Papanicolaou smear specimen (specimen) CERVIX UTERI STRUCTURE / Unknown 08/31/2022 9:20 EDT 09/08/2022 9:14 EDT Katlyn Ardon MD MICROBIOLOGY - GENER AL ORDERABLES [facility] [address] [place] [address] * PAP TEST (08/31/2022 9:20 EDT) Specimens A. Cervix and/or Endocervix , ThinPrep Imaging System with Manual Evaluation 09/09/2022 17:30 T [facility] Specimen Adequacy Satisfactory for Evaluation - transformation zone component present 09/09/2022 17:30 [facility] General Categorization Negative for intraepithelial lesion or malignancy 09/09/2022 17:30 [facility] Attestation . 09/09/2022 17:30 [facility] at 1730 Clinical History See below 09/10/19 23 17:30 [facility] HPV The result for the Human Papillomavirus (HPV) Detection-High Risk Types is Negative. No E6 or E7 mRNA is detected from HPV types 16,18,31,33,35,39 ,45,51,52,56,58,5 9,66, and 68 by market basket maker mediated amplification.Petty ting was performed on specimen [id number] and was resulted on 09/09/2022 1730 EDT by DAYNA, LAB INSTRUMENT RESULTS IN 09/09/2022 17:30 T [facility] Performing Lab [facility] 09/09/2022 17:30 T [facility] Scanned Images 09/09/2022 17:30 [facility] Papanicolaou smear specimen (specimen) CERVIX UTERI STRUCTURE / Unknown 08/31/2022 9:20 EDT 09/01/2022 14:36 EDT Katlyn Ardon MD PATHOLOGY ORDERABLES [facility] [address] [place] [address] documented in this encounter Visit Diagnoses Diagnosis Encounter for other general examination documented in this encounter Care Teams Organic Chemistry Teacher Relationship Specialty Start Date End Date Unknown, Provider, PCP - General 10/02/08 documented as of this encounter
--- OUTSIDE RECORDS SUMMARY | 2023-12-18 02:22 | XMS_ITS | Encounter Summary ---
Author Organization [facility] Address [address] [place] [address] Care Team Providers Care Ex Chef Name Role Phone Unknown, Provider Primary Care Provider Encounter Details Date Type Department Care Team (Late st Contact Info) Description 12/11/2000 Results Only [facility] - Maple conversion [address] [place] [address] Rohan Thorpe MD Social History Tobacco Use [...] JOSE ANTONIO CARIAS ? Accession #: ? [id number] : ? 1975 (Age: 25) ??F ?Collect [...] de Phone Number [facility] [address] [place] [address] documented in this encounter Visit Diagnoses Not on filedocumented in this encounter Care Teams Ex Chef Relationship Specialty Start Date End Date Unknown, Provider, PCP - General 10/02/08 documented as of this encounter
--- OUTSIDE RECORDS SUMMARY | 2023-12-18 02:22 | XMS_ITS | Encounter Summary ---
Author Organization [facility] Address [address] [place] [address] Care Team Providers Care Hr Business Partner Consultant Name Role Phone Unknown, Provider Primary Care Provider Encounter Details Date Type Department Care Team (Late st Contact Info) Description 02/17/[address] [facility] Laboratory Services - [facility] ([facility] [address] [place], [place] [address] Patricia Turner, [facility] [address] [place] [address] [place] [phone] Social History Tobacco Use Types Packs/Day Years [...] JOSE ANTONIO CARIAS ? Accession #: ? [id number] : ? 1975 (Age: 35) ??F ?Collect Date: ? 02/17/2011 Location: ? [facility] ? Receive Date: ? 02/18/2011 Provider: ?PATRICIA TURNER WAD IMPREGNATOR Copy to: ?[facility] ? Specimen/Source: ?Pap Test, Cervix/Endocervix, ThinPrep Imaging [...] Report JONATHON GIL 02/17/2011 02/18/2011 Patricia Turner WAD IMPREGNATOR PATHOLOGY ORDERABLES JONATHON GIL [address] [place] [address] documented in this encounter Visit Diagnoses Not on filedocumented in this encounter Care Teams Hr Business Partner Consultant Relationship Specialty Start Date End Date Unknown, Provider, PCP - General 10/02/08 documented as of this encounter
--- OUTSIDE RECORDS SUMMARY | 2023-12-18 02:22 | XMS_ITS | Encounter Summary ---
Author Organization [facility] Address [address] [place] [address] Care Team Providers Care Technical Product Manager Name Role Phone Unavailable Primary Care Provider Unavailabl e Encounter Details Date Type Department Care Team (Latest Contact Info) Description 04/05/2006 12:29 [facility] Hospital Encounter [facility] - Other [address] [place] [address] [place] [address] Discharge Disposition: Auto Discharge Social History Tobacco [...]
--- OUTSIDE RECORDS SUMMARY | 2023-12-18 02:22 | XMS_ITS | Encounter Summary ---
Author Organization [facility] Address [address] [place] [address] Care Team Providers Care Casualty Claim Adjuster Name Role Phone Unknown, Provider Primary Care Provider [phone] Encounter Details Date Type Department Care Team (Late st Contact Info) Description 02/21/2012 Results Only [facility] Laboratory Services - [facility] ([facility] [address] [place], [place] [address] Patricia Turner, [facility] [address] [place] [address] [place] [phone] Social History Tobacco Use Types Packs/Day Years [...] JOSE ANTONIO CARIAS ? Accession #: ? [id number] : ? 1975 (Age: 36) ??F ?Collect Date: ? 02/21/2012 Location: ? [facility] ? Receive Date: ? 02/22/2012 Provider: ?PATRICIA TURNER LOCKS TENDER Copy to: ?[facility] ? Specimen/Source: ?Pap Test, Cervix/Endocervix, ThinPrep Imaging [...] Report JONATHON GIL 02/21/2012 02/22/2012 Patricia Turner LOCKS TENDER PATHOLOGY ORDERABLES [facility] [address] [place] [address] documented in this encounter Visit Diagnoses Not on filedocumented in this encounter Care Teams Casualty Claim Adjuster Relationship Specialty Start Date End Date Unknown, Provider, PCP - General 10/02/08 documented as of this encounter
--- OUTSIDE RECORDS SUMMARY | 2023-12-18 02:22 | XMS_ITS | Encounter Summary ---
Author Organization [facility] Address [address] [place] [address] Care Team Providers Care Rose Grower Name Role Phone Unknown, Provider Primary Care Provider [phone] Encounter Details Date Type Department Care Team (Late st Contact Info) Description 07/14/2004 Results Only [facility] - Maple conversion [address] [place] [address] Patricia Turner, [address] [phone] Social History Tobacco Use Types Packs/Day Years [...] JOSE ANTONIO CARIAS ? Accession #: ? [id number] : ? 1975 (Age: 28) ??F ?Collect Date: ? 07/14/2004 Location: ? [facility] ? Receive Date: ? 07/16/2004 Provider: ?PATRICIA TURNER BOARDING MACHINE OPERATOR Copy to: ? Specimen/Source: ?ThinPrep Pap Test, [...] and electronically signed by: ? Jackelin Mills, [facility](ASCP) ? Report Date: ??07/20/2004 13:18 End of Report JONATHON GIL 07/14/2004 07/16/2004 Patricia Turner BOARDING MACHINE OPERATOR PATHOLOGY ORDERABLES [facility] [address] [place] [address] documented in this encounter Visit Diagnoses Not on filedocumented in this encounter Care Teams Rose Grower Relationship Specialty Start Date End Date Unknown, Provider, PCP - General 10/02/08 documented as of this encounter
--- OUTSIDE RECORDS SUMMARY | 2023-12-18 02:22 | XMS_ITS ---
Author Organization Unknown Address [address] [place] [phone] Phone Care Team Providers Care Physical Therapy Instructor Name Role Phone JOSE Huggins Attending Unavailable WARREN Huggins Primary Unavailable Social History Type Status Start Date End Date Code Code Syst em Smoking History Current every day smoker 140561382 SNOMED CT Sex Female Hospital Discharge Instructions [...] Code System No Known Drug Allergies Active 046988664 SNOMED-CT Plan of Treatment US PELVIC / TV 07/05/2023 PRE-OP COVID-19 TESTING 10/01/2021 [facility] HEPATOBILIARY [facility] 09/15/2021 Encounters Encounter Diagnosis Start Date Code Code Sys tem Inflammatory disease of cervix uteri 06/12/2023 SNOMED-CT Personal Care Team Section Performer Name Performer Role Active Date Inactive Da te
--- OUTSIDE RECORDS SUMMARY | 2023-12-18 02:22 | XMS_ITS | Encounter Summary ---
Author Organization [facility] Address [address] [place] [address] Care Team Providers Care Baggage Agent Name Role Phone Unknown, Provider Primary Care Provider Encounter Details Date Type Department Care Team (Late st Contact Info) Description 02/25/2003 Results Only [facility] - Maple conversion [address] [place] [address] Patricia Turner, [address] [phone] Social History Tobacco Use Types Packs/Day Years [...] JOSE ANTONIO CARIAS ? Accession #: ? [id number] : ? 1975 (Age: 27) ??F ?Collect Date: ? 02/25/2003 Location: ? [facility] ? Receive Date: ? 02/27/2003 Provider: ?PATRICIA TURNER TRAVEL PT Copy to: ? Specimen/Source: ?ThinPrep Pap Test, [...] Report JONATHON GIL 02/25/2003 02/27/2003 Patricia Turner TRAVEL PT PATHOLOGY ORDERABLES JONATHON GIL [address] [place] [address] documented in this encounter Visit Diagnoses Not on filedocumented in this encounter Care Teams Baggage Agent Relationship Specialty Start Date End Date Unknown, Provider, PCP - General 10/02/08 documented as of this encounter
--- OUTSIDE RECORDS SUMMARY | 2023-12-18 02:22 | XMS_ITS | Encounter Summary ---
Author Organization [facility] Address [address] [place] [address] Care Team Providers Care C Wpf Developer Name Role Phone Unknown, Provider Primary Care Provider Encounter Details Date Type Department Care Team (Late st Contact Info) Description 02/03/2015 Results Only [facility] [phone] Patricia Turner, [address] [place] [phone] Social History Tobacco Use Types Packs/Day Years [...] JOSE ANTONIO CARIAS ? Accession #: ? [id number] ? : ? 1975 (Age: 39) ??F ?Collect Date: ? 02/03/2015 ? Location: ? [facility] ? Receive Date: ? 02/04/2015 ? Provider: PATRICIA TURNER AIRCRAFT ENGINE MECHANIC OVERHAUL Copy to: [facility] RACKET STRINGER ? Final Report SPECIMEN ADEQUACY ? Satisfactory [...] types 16,18,31,33,35, 39,45,51,52,56,58, 59,66, and 68 by earth moving technician mediated amplification. Comments Document reviewed and electronically signed by: ? System Interface ? Report date: 02/09/2015 By the signature above, the attending physician certifies that he/she has personally conducted a gross and/or microscopic examination of the described specimens and rendered or confirmed the above diagnosis. End of Report [facility] 02/03/2015 02/04/2015 Patricia Turner AIRCRAFT ENGINE MECHANIC OVERHAUL PATHOLOGY ORDERABLES [facility] [address] [place] [address] documented in this encounter Visit Diagnoses Not on filedocumented in this encounter Care Teams C Wpf Developer Relationship Specialty Start Date End Date Unknown, Provider, PCP - General 10/02/08 documented as of this encounter
--- OUTSIDE RECORDS SUMMARY | 2023-12-18 02:22 | XMS_ITS | Encounter Summary ---
Author Organization [facility] Address [address] [place] [address] Care Team Providers Care Spray Dyer Name Role Phone Unknown, Provider Primary Care Provider [phone] Encounter Details Date Type Department Care Team (Late st Contact Info) Description 10/31/2022 Lab Requisition [facility] Pathology & Laboratory Medicine - [address] [address] Outr Resulting Lab, Provider Social History Tobacco [...] 2.8 - 5.3 pg/mL 10/31/2022 22:20 EDT [facility] Blood VENOUS BLOOD / Unknown 10/31/2022 8:03 EDT 10/31/2022 21:41 EDT Provider Outr Resulting Lab CHEMISTRY & BLOOD GAS ORDERABLES [facility] [address] [place] [address] documented in this encounter Visit Diagnoses Not on filedocumented in this encounter Care Teams Spray Dyer Relationship Specialty Start Date End Date Unknown, Provider, PCP - General 10/02/08 documented as of this encounter
--- OUTSIDE RECORDS SUMMARY | 2023-12-18 02:22 | XMS_ITS | Encounter Summary ---
Author Organization [facility] Address [address] [place] [address] Care Team Providers Care Client Support Representative Name Role Phone Unknown, Provider Primary Care Provider Encounter Details Date Type Department Care Team (Late st Contact Info) Description 05/05/2000 Results Only [facility] - Maple conversion [address] [place] [address] Rohan Thorpe MD Social History Tobacco Use [...] End of Report JONATHON GIL 05/05/2000 05/08/2000 oRhan Thorpe MD PATHOLOGY ORDERABLES Performing Organization Address City/State/[facility] Co de Phone Number JONATHON GIL [address] [place] [address] documented in this encounter Visit Diagnoses Not on filedocumented in this encounter Care Teams Client Support Representative Relationship Specialty Start Date End Date Unknown, Provider, PCP - General 10/02/08 documented as of this encounter
--- OUTSIDE RECORDS SUMMARY | 2023-12-18 02:22 | XMS_ITS | Clinical Summary ---
Author Organization [facility] Address [address] [place] [address] Care Team Providers Care Health And Safety Coordinator Name Role Phone Unknown, Provider Primary Care [...] COVID-19 Vaccine ( season) 2022 Care Teams Health And Safety Coordinator Relationship Specialty Start Date End Date Unknown, Provider, PCP - General 10/02/08
--- NOTE | 2023-12-18 08:00 | DI.MAMMO_ITS ---
Exam(s) MAMMO SCREENING EXAM: MAMMO SCREENING CLINICAL HISTORY: screening TECHNIQUE: Mammograms were interpreted according to the usual protocol including computer analysis w [employer] CAD system, tomosynthesis and C-view imaging. COMPARISON: 2020 AND 2022 FINDINGS: The breasts are composed of scattered fibroglandular densities, Breast Density category B. No suspicious masses or suspicious microcalcifications are seen. No skin thickening or abnormal axillary lymph nodes are seen. There has been no significant change from prior exams. IMPRESSION: BI-RADS Category 1, Negative mammogram Yearly screening mammography is recommended. Breast Density - Category B, scattered fibroglandular densities. A negative radiographic report should not delay biopsy if a dominant or clinically suspicious mass is present. Up to ten percent of cancers are not identified on mammography. A negative report may reinforce clinical impression. Adenosis and dense breasts may obscure an underlying neoplasm. False positive reports average 6 to 10%. Patient will receive a letter notifying them of these results.
== END 2023-12-18 02:33 ==
LOC: DI 02:14
PROVIDERS: PCP Obstetrics & Gynecology; Visit Provider Nurse Practitioner Women's Health
DX: Z12.31 Encounter for screening mammogram for malignant neoplasm of breast (principal)
CPT/HCPCS: 77063; 77067

== ENCOUNTER 2024-12-19 00:18 | Outpatient (CLI) | payer BC, SELFPAY ==
--- NOTE | 2024-12-19 07:30 | DI.MAMMO_ITS ---
Exam(s) MAMMO SCREENING EXAM: MAMMO SCREENING CLINICAL HISTORY: screening. TECHNIQUE: Bilateral full field digital CC and MLO mammographic images were obtained with 3D tomosynthesis and utilizing computer aided detection (CAD). COMPARISON: Prior mammograms were reviewed. FINDINGS: No new findings in left breast. In the posterior medial aspect of the right breast there is an asymmetric density-possible nodule located 10 cm in from the nipple, measuring approximately 7 x 5 mm. Spot compression view recommended. There are no malignant-appearing microcalcification groups in this region or elsewhere in either breast. There is no significant architectural distortion nor skin thickening-retraction. IMPRESSION: 1. No radiographic evidence of malignancy in left breast. 2. Nodular density posteromedially in the right breast, 10 cm in from the nipple. Spot compression CC view and ultrasound recommended. BI-RADS Category 0 - Incomplete: Need additional imaging evaluation Breast Density - Category B - There are scattered areas of fibroglandular density. Breast density Category C or D implies that the patient has dense breast tissue. Dense breast tissue can make it harder to find cancer on a mammogram. Dense breast tissue is also associated with an increased risk of breast cancer. This information about the result of the mammogram report was provided to the patient to raise their awareness. Use this report when you speak with the patient about their risks for breast cancer, which includes their family history. At that time, you may recommend additional screening tests (Ultrasound or MRI) as these tests may add significant information. A negative radiographic report should not delay biopsy if a dominant or clinically suspicious mass is present. Up to ten percent of cancers are not identified on mammography. A negative report may reinforce clinical impression. Adenosis and dense breasts may obscure an underlying neoplasm. False positive reports average 6 to 10%. Patient will receive a letter notifying them of these results.
== END 2024-12-19 00:38 ==
LOC: DI 00:18
PROVIDERS: PCP Obstetrics & Gynecology; Visit Provider Nurse Practitioner Women's Health
DX: Z12.31 Encounter for screening mammogram for malignant neoplasm of breast (principal); R92.323 Mammographic fibroglandular density, bilateral breasts
CPT/HCPCS: 77063; 77067

== ENCOUNTER 2024-12-24 02:09 | Outpatient (CLI) | payer BC, SELFPAY ==
--- NOTE | 2024-12-24 | DI.MAMMO_ITS ---
Exam(s) MG MAMMO SCREEN CALL BACK UNI US BREAST RT COMPLETE EXAM: MG MAMMO SCREEN CALL BACK UNI and U/S breast RT complete CLINICAL HISTORY: NODULAR DENSITY POSTEROMEDIALLY RT BREAST 10 CM FROM NIPPLE R92.8 ABNL GAMAL. TECHNIQUE: Craniocaudal and mediolateral oblique Full Field Digital Mammography views of the right breast with Computer Aided Diagnosis followed by Tomosynthesis and complete right breast ultrasound. All 4 quadrants of the right breast, the right axilla and right retroareolar region were evaluated so nographically. COMPARISON: Comparison is made with prior examinations. FINDINGS: Mammography/Tomosynthesis: Masses/Architectural Distortion: The area of concern in the medial right breast persists on the additional view. It measures 6 mm in length. There is no corresponding finding on the additional MLO views. This area was not present on the mammogram from 2020. Microcalcifictions: No suspicious pleomorphic-type are seen. Skin Thickening/Nipple Retraction: None. Complete right breast US: Echotexture: Normal appearance of the glandular tissue. Shadowing: No suspicious foci. Cyst: There is a 0.5 x 0.2 x 0.6 cm cyst at the 12 o'clock position of the right breast 3 cm from the nipple. There is a 0.2 x 0.2 x 0.5 cm ovoid anechoic lesion at the 11 o'clock position of the right breast 4 cm from the nipple. This may represent a cyst. Solid lesions: No cystic or solid mass is seen in the medial breast to correspond to the mammographic abnormality. Ductal dilation: None. IMPRESSION: 1. Persistent lesion in the medial breast measuring 6 mm. 2. Further evaluation is recommended. MRI of the breasts are recommended for further characterization. 3. The findings were discussed with the patient on the date of the examination. The findings were discussed with Mikala Martin NP on 12/24/2024. BI-RADS Category 0 - Incomplete: Need additional imaging evaluation Breast Density - Category B - There are scattered areas of fibroglandular density. Breast density Category C or D implies that the patient has dense breast tissue. Dense breast tissue can make it harder to find cancer on a mammogram. Dense breast tissue is also associated with an increased risk of breast cancer. This information about the result of the mammogram report was provided to the patient to raise their awareness. Use this report when you speak with the patient about their risks for breast cancer, which includes their family history. At that time, you may recommend additional screening tests (Ultrasound or MRI) as these tests may add significant information. A negative radiographic report should not delay biopsy if a dominant or clinically suspicious mass is present. Up to ten percent of cancers are not identified on mammography. A negative report may reinforce clinical impression. Adenosis and dense breasts may obscure an underlying neoplasm. False positive reports average 6 to 10%. Patient will receive a letter notifying them of these results.
== END 2024-12-24 02:29 ==
LOC: DI 02:09
PROVIDERS: PCP Obstetrics & Gynecology; Visit Provider Nurse Practitioner Women's Health
DX: Z12.31 Encounter for screening mammogram for malignant neoplasm of breast (principal); R92.8 Other abnormal and inconclusive findings on diagnostic imaging of breast; R92.323 Mammographic fibroglandular density, bilateral breasts
CPT/HCPCS: 76642; 77063; 77067